=== PATIENT | female | born 1935 | race Caucasian/White ===

== ENCOUNTER 2017-08-26 18:06 | Emergency (ER) | payer MEDICARE, BC ==
[2017-08-26] MEDS ORDERED: cloNIDine 0.1 MG Tab ONE (18:12)
--- NOTE | 2017-08-26 18:54 | EDM.PDOC ---
ED HPI GENERAL MEDICAL PROBLEM - General Chief Complaint: General Stated Complaint: High BP reading at home Time Seen by Provider: 08/26/17 18:28 Source of Information: Reports: Patient History Limitations: Reports: No Limitations - History of Present Illness INITIAL COMMENTS - FREE TEXT/NARRATIVE: Patient presents to the ER with concerns of high blood pressure related to recent prednisone use. She states she was put on this for left ankle pain last Sunday from the parts casting machine operator due to significant swelling. She wasn't really experiencing any pain. She started to note that her blood pressure was creeping up on sunday. She contacted parts casting machine operator and was told to stop the prednisone. That day she was noting a rapid heart rate and felt somewhat short of breath. Since then, the blood pressure gets higher and higher every day. Today she has taken an additional 15 mg of her Lisinopril due to this. She has felt flushed today but denies any other symptoms. 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 - Related Data Allergies Allergy/AdvReac Type Severity Reaction Status Date / Time acetaminophen [From Percocet] Allergy Dizziness Verified 08/26/17 18:39 arformoterol [From Brovana] Allergy Rash Verified 08/26/17 18:39 budesonide [From Symbicort] Allergy Swelling Verified 08/26/17 18:39 fluticasone Allergy Cannot Verified 08/26/17 18:39 [From Advair Diskus] Remember formoterol fumarate Allergy Swelling Verified 08/26/17 18:39 [From Symbicort] oxycodone [From Percocet] Allergy Dizziness Verified 08/26/17 18:39 salmeterol Allergy Cannot Verified 08/26/17 18:39 [From Advair Diskus] Remember sulfamethoxazole Allergy Rash Verified 08/26/17 18:39 [From Bactrim] trimethoprim [From Bactrim] Allergy Rash Verified 08/26/17 18:39 urofollitropin Allergy Swelling Verified 08/26/17 18:39 [From Bravelle] Home Meds: Home Meds Antiox #11/OM3/DHA/EPA/Lut/Jose [50+ Adult Eye Health Softgel] 1 cap PO BEDTIME 09/24/15 [History] Calcium Carbonate [Calcium] 600 mg PO DAILY 09/24/15 [History] Levothyroxine 112 mcg PO BEDTIME 09/24/15 [History] Lisinopril [Prinivil] 5 mg PO DAILY 09/24/15 [History] Meloxicam 0.5 tab PO DAILY 09/24/15 [History] Mometasone Furoate [Asmanex 220 MCG] 2 puff INH DAILY 09/24/15 [History] Ubidecarenone/[place]-3/Vit E [Co Q-10-Vit E-Fish Oil Sfgl] 2 tab PO DAILY [History] Past Medical History HEENT History: Reports: Impaired Vision Cardiovascular History: Reports: Hypertension Respiratory History: Reports: Asthma Other Respiratory History: Uses C-Pap for sleep apnea Gastrointestinal History: Reports: GERD Genitourinary History: Reports: UTI, Recurrent 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: Musculoskeletal History: Reports: Arthritis Other Musculoskeletal History: L rotator cuff torn, "broke cap on top of humerus on R side" Endocrine/Metabolic History: Reports: Hypothyroidism Oncologic (Cancer) History: Reports: Squamous Cell Carcinoma Dermatologic History: Reports: Other (See Below) 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 Denies: Fever, Chills, Malaise, Weakness, Decreased Appetite HEENT: Denies: Ear Pain, Eye Pain, Sinus Problem, Throat Pain, Vertigo, Vision Change Respiratory: Denies: Shortness of Breath, Wheezing, Cough Cardiovascular: Denies: Chest Pain, Lightheadedness Endocrine: Denies: Fatigue GI/Abdominal: Reports: No Symptoms Musculoskeletal: Reports: Joint Pain ED EXAM, GENERAL - Physical Exam Exam: See Below Exam Limited By: No Limitations General Appearance: Alert, WD/WN, No Apparent Distress Eye Exam: Bilateral Eye: EOMI, PERRL Ears: Normal External Exam, Normal TMs Nose: Normal Inspection, Normal Mucosa, No Blood Throat/Mouth: Normal Inspection, Normal Oropharynx Head: Normocephalic Neck: Normal Inspection, Supple, Non-Tender Respiratory/Chest: No Respiratory Distress, Lungs Clear, Normal Breath Sounds Cardiovascular: Regular Rate, Rhythm Course - Vital Signs Last Recorded V/S: Last Vital Signs Temp 97.7 F 08/26/17 18:07 Pulse 79 08/26/17 18:07 Resp 18 08/26/17 18:07 BP 220/118 H 08/26/17 18:20 Pulse Ox 97 08/26/17 18:07 - Orders/Labs/Meds Orders: Active Orders 24 hr Category Date Time Status cloNIDine [Catapres] Med 08/27/17 18:16 Once 0.1 mg PO ONETIME ONE Medication Orders Clonidine HCl (Catapres) 0.1 mg PO ONETIME ONE Stop: 08/27/17 18:17 Last Admin: 08/26/17 18:20 Dose: 0.1 mg Meds: Medications Generic Name Dose Route Start Last Admin Trade Name Freq PRN Reason Stop Dose Admin Clonidine HCl 0.1 mg 08/27/17 18:16 08/26/17 18:20 Catapres PO 08/27/17 18:17 0.1 mg ONETIME ONE Administration Discontinued Medications Generic Name Dose Route Start Last Admin Trade Name Freq PRN Reason Stop Dose Admin Clonidine HCl Confirm 08/26/17 18:12 08/26/17 18:20 Catapres Administered 08/26/17 18:13 Not Given Dose 0.1 mg .ROUTE .STK-MED ONE - Re-Assessments/Exams Free Text/Narrative Re-Assessment/Exam: 08/26/17 19:19 Was given clonidine approximately an hour ago. Blood pressure is coming down nicely. Departure - Departure Time of Disposition: 19:19 Disposition: Home, Self-Care 01 Condition: Fair Clinical Impression: Hypertensive urgency - Discharge Information Additional Instructions: 1. Rest 2. Push fluids 3. Take your usual Lisinopril dose daily 4. Clonidine 0.1 mg up to 3x per day if blood pressure greater than 160/100. 5. Contact your primary care provider for any concerns. - My Orders Last 24 Hours: My Active Orders 08/27/17 18:16 cloNIDine [Catapres] 0.1 mg PO ONETIME ONE - Assessment/Plan Last 24 Hours: My Active Orders 08/27/17 18:16 cloNIDine [Catapres] 0.1 mg PO ONETIME ONE
[2017-08-26 19:15] VITALS: BP 158/77
[2017-08-26] MEDS ORDERED: cloNIDine 0.1 MG Tab PO PRN (19:20)
[2017-08-27] MEDS ORDERED: cloNIDine 0.1 MG Tab PO ONE (18:16)
== END 2017-08-26 19:25 | disposition home or self-care (01) ==
LOC: CC.ED 18:06
DX: I16.0 Hypertensive urgency (principal); J45.909 Unspecified asthma, uncomplicated; Z79.899 Other long term (current) drug therapy; I10 Essential (primary) hypertension; Z88.8 Allergy status to other drugs, medicaments and biological substances; Z88.6 Allergy status to analgesic agent; Z88.2 Allergy status to sulfonamides; Z88.1 Allergy status to other antibiotic agents
CPT/HCPCS: 99283; A9270

== ENCOUNTER 2018-10-06 00:50 | Emergency (ER) | payer MEDICARE, BC ==
--- NOTE | 2018-10-06 01:40 | EDM.PDOC ---
ED HPI GENERAL MEDICAL PROBLEM - General Chief Complaint: Cardiovascular Problem Stated Complaint: high blood pressure Time Seen by Provider: 10/06/18 01:00 Source of Information: Reports: Patient History Limitations: Reports: No Limitations - History of Present Illness INITIAL COMMENTS - FREE TEXT/NARRATIVE: This patient is an 83 year old female that presents to the ER. Patient arrives via EMS. Patient reports that she has been having blood pressure issues with managing her BP for the last 1 month. patient reports that she saw her food science professor on . She reports her food science professor made some medication changes to her BP meds. She reports starting her on Amlodipine and asking her to stop taking clonidine. She reports that this morning she took her BP at home. She reports it was elevated 200s over 100. She reports that she called her food science professor. He told her to double up on the amlodipine. She reports that it brought it down some, but was still high in the afternoon, so she called him again. He told her than to take a clonidine. She took it, it came down some, but was still elevated she reports. She reports so she called him again this evening, instructed her to take another clonidine. She reports that if her BP still remains very high to go to the ER. The patient reports that after she took her second clonidine, she was sitting in her chair and it felt like the inside of her head was moving, but she was not physically moving herself. The patient denies peña, n, v, d, f, neck pain, neck stiffness, chest pain, abd pain, back pain, urinary/bowel changes, edema, unilateral weaknesses, generalized weakness. She reports she has been short of breath for a month, unchanged. She reports her PCP ordered an echocardiogram that she had done and than saw the food science professor. Patient is alert and oriented. Onset Date: 10/03/18 Location: Reports: Head Severity: Mild Improves with: Reports: None Worsens with: Reports: None Associated Symptoms: Reports: Shortness of Breath. Denies: Confusion, Chest Pain, Cough, cough w sputum, Diaphoresis, Fever/Chills, Headaches, Loss of Appetite, Malaise, Nausea/Vomiting, Rash, Seizure, Syncope, Weakness - Related Data Allergies Allergy/AdvReac Type Severity Reaction Status Date / Time acetaminophen [From Percocet] Allergy Dizziness Verified 10/06/18 01:52 arformoterol [From Brovana] Allergy Rash Verified 10/06/18 01:52 budesonide [From Symbicort] Allergy Swelling Verified 10/06/18 01:52 fluticasone Allergy Cannot Verified 10/06/18 01:52 [From Advair Diskus] Remember formoterol fumarate Allergy Swelling Verified 10/06/18 01:52 [From Symbicort] oxycodone [From Percocet] Allergy Dizziness Verified 10/06/18 01:52 salmeterol Allergy Cannot Verified 10/06/18 01:52 [From Advair Diskus] Remember sulfamethoxazole Allergy Rash Verified 10/06/18 01:52 [From Bactrim] trimethoprim [From Bactrim] Allergy Rash Verified 10/06/18 01:52 urofollitropin Allergy Swelling Verified 10/06/18 01:52 [From Bravelle] Home Meds: Home Meds Calcium Carbonate [Calcium] 250 mg PO DAILY 09/24/15 [History] Levothyroxine 112 mcg PO BEDTIME 09/24/15 [History] Lisinopril [Prinivil] 40 mg PO DAILY 09/24/15 [History] Mometasone Furoate [Asmanex 220 MCG] 1 puff INH BID 09/24/15 [History] Albuterol Sulfate [Proair Hfa] 1 puff INH DAILY PRN 10/06/18 [History] Fish Oil/[place]-3 Fatty Acids [Fish Oil 1,000 MG] 2,000 mg PO DAILY 10/06/18 [ History] Lutein 10 mg PO DAILY 10/06/18 [History] Vitamin B Complex 2 cap PO DAILY 10/06/18 [History] amLODIPine [Norvasc] 10 mg PO DAILY 10/06/18 [History] cloNIDine [Catapres] 0.1 mg PO DAILY PRN 10/06/18 [History] Past Medical History HEENT History: Reports: Impaired Vision Cardiovascular History: Reports: Hypertension Respiratory History: Reports: Asthma Other Respiratory History: Uses C-Pap for sleep apnea Gastrointestinal History: Reports: GERD Genitourinary History: Reports: UTI, Recurrent 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: Musculoskeletal History: Reports: Arthritis Other Musculoskeletal History: L rotator cuff torn, "broke cap on top of humerus on R side" Endocrine/Metabolic History: Reports: Hypothyroidism Oncologic (Cancer) History: Reports: Squamous Cell Carcinoma Dermatologic History: Reports: Other (See Below) 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 Denies: Chest Pain, Dyspnea on Exertion, Edema, Palpitations, Syncope Endocrine: Reports: No Symptoms GI/Abdominal: Reports: No Symptoms : Reports: No Symptoms Musculoskeletal: Reports: No Symptoms Skin: Reports: No Symptoms Neurological: Reports: No Symptoms. Denies: Confusion, Headache, Numbness, Tingling, Tremors, Trouble Speaking, Difficulty Walking, Weakness, Change in Speech, Gait Disturbance Psychiatric: Reports: No Symptoms Hematologic/Lymphatic: Reports: No Symptoms Immunologic: Reports: No Symptoms ED EXAM, GENERAL - Physical Exam Exam: See Below Exam Limited By: No Limitations General Appearance: Alert, WD/WN, No Apparent Distress Eye Exam: Bilateral Eye: Normal Inspection, PERRL Ears: Normal External Exam, Normal Canal, Hearing Grossly Normal, Normal TMs Ear Exam: Bilateral Ear: Auricle Normal, Canal Normal, TM normal Nose: Normal Inspection, Normal Mucosa, No Blood Throat/Mouth: Normal Inspection, Normal Lips, Normal Teeth, Normal Gums, Normal Oropharynx, Normal Voice, No Airway Compromise Head: Atraumatic, Normocephalic Neck: Normal Inspection, Supple, Non-Tender, Full Range of Motion Respiratory/Chest: No Respiratory Distress, Lungs Clear, Normal Breath Sounds, No Accessory Muscle Use, Chest Non-Tender Cardiovascular: Normal Peripheral Pulses, Regular Rate, Rhythm, No Edema, No Gallop, No JVD, No Murmur, No Rub Peripheral Pulses: 2+: Radial (L), Radial (R), Posterior Tibial (L), Posterior Tibial (R) GI/Abdominal: Normal Bowel Sounds, Soft, Non-Tender, No Organomegaly, No Distention, No Abnormal Bruit, No Mass, Pelvis Stable (Female) Exam: Deferred Rectal (Female) Exam: Deferred Back Exam: Normal Inspection, Full Range of Motion. No: CVA Tenderness (L), CVA Tenderness (R) Extremities: Normal Inspection, Normal Range of Motion, Non-Tender, No Pedal Edema, Normal Capillary Refill Neurological: Alert, Oriented, CN II-XII Intact, Normal Cognition, Normal Gait, No Motor/Sensory Deficits Psychiatric: Normal Affect, Normal Mood Skin Exam: Warm, Dry, Intact, Normal Color, No Rash Lymphatic: No Adenopathy Course - Vital Signs Last Recorded V/S: Last Vital Signs Temp 98 F 10/06/18 00:51 Pulse 79 10/06/18 00:51 Resp 18 10/06/18 00:51 BP 154/69 H 10/06/18 02:05 Pulse Ox 99 10/06/18 00:51 - Orders/Labs/Meds Orders: Active Orders 24 hr Category Date Time Status Chest 2V [CR] Stat Exams 10/06/18 00:58 Taken Head wo Cont [CT] Stat Exams 10/06/18 01:23 Taken Blood Pressure [OM.PC] Stat Oth 10/06/18 02:01 Ordered Labs: Laboratory Tests 10/06/18 10/06/18 10/06/18 Range/Units 01:20 01:20 01:20 WBC 7.2 (5.0-10.0) 10^3/uL RBC 4.56 (4.00-5.50) 10^6/uL Hgb 14.2 (12.0-16.0) g/dL Hct 43.4 (37.0-47.0) % MCV 95.2 H (82.0-94.0) fL MCH 31.1 (27.0-32.0) pg MCHC 32.7 L (33.0-38.0) g/dL RDW Coeff of Tobin 13.2 (11.0-15.0) % Plt Count 233 (150-400) 10^3/uL Neut % (Auto) 62.2 (35-85) % Lymph % (Auto) 21.0 (10-55) % Terry % (Auto) 14.1 (0-16) % Eos % (Auto) 1.9 (0-5) % Baso % (Auto) 0.8 (0-3) % Neut # (Auto) 4.46 (1.80-7.00) 10^3/uL Lymph # (Auto) 1.51 (1.00-4.80) 10^3/uL Terry # (Auto) 1.01 H (0.00-0.80) 10^3/uL Eos # (Auto) 0.14 (0.00-0.45) 10^3/uL Baso # (Auto) 0.06 10^3/uL Sodium 141 (136-145) mEq/L Potassium 3.8 (3.5-5.0) mEq/L Chloride 102 (98-106) mEq/L Carbon Dioxide 31 (21-32) mmol/L BUN 15 (7-18) mg/dL Creatinine 0.9 (0.6-1.0) mg/dL Est Cr Clr Drug Dosing 39.18 mL/min Estimated GFR (MDRD) 60 (>=60) mL/min Glucose 120 H D (75-99) mg/dL Calcium 9.2 (8.4-10.1) mg/dL Total Bilirubin 0.3 (0.0-1.0) mg/dL AST 21 (15-37) U/L ALT 25 (12-78) U/L Alkaline Phosphatase 73 (46-116) U/L Creatine Kinase 116 (21-215) U/L Troponin I < 0.017 (0.00-0.06) ng/mL NT-Pro-B Natriuret Pep 57 (0-1000) pg/mL Total Protein 8.4 H (6.4-8.2) g/dL Albumin 3.8 (3.4-5.0) g/dL TSH, Ultra Sensitive 1.72 (0.36-5.60) uIU/mL - Radiology Interpretation Free Text/Narrative:: Head CT: No bleed, no infarct, no shift. CXR: no infiltrate, no edema, no pneumothorax. CT Results Date: 10/06/18 - Re-Assessments/Exams Free Text/Narrative Re-Assessment/Exam: 10/06/18 02:33 Patient blood pressure is 154/69. She has no headache, dizziness, n, vomiting, or any other symptoms. Workup unremarkable. Will discharge home. She is alert and oriented. Her food science professor stopped arthritis medication. Departure - Departure Time of Disposition: 02:36 Disposition: Home, Self-Care 01 Condition: Good Clinical Impression: Hypertension Qualifiers: Hypertension type: essential hypertension Qualified Code(s): I10 - Essential ( primary) hypertension Instructions: Managing Your Hypertension Forms: ED Department Discharge Additional Instructions: Followup with your food science professor Do Not take your blood pressure as often as 2 hours Return to the ER for emergencies or other concerns - My Orders Last 24 Hours: My Active Orders 10/06/18 00:58 Chest 2V [CR] Stat 10/06/18 01:23 Head wo Cont [CT] Stat 10/06/18 02:01 Blood Pressure [OM.PC] Stat - Assessment/Plan Last 24 Hours: My Active Orders 10/06/18 00:58 Chest 2V [CR] Stat 10/06/18 01:23 Head wo Cont [CT] Stat 10/06/18 02:01 Blood Pressure [OM.PC] Stat Plan: PLEASE SEE RN NOTE FOR PFSH.
[2018-10-06 01:48] LABS: CHLORIDE,CL 102 mEq/L (98-106); SODIUM,NA 141 mEq/L (136-145)
[2018-10-06 02:06] VITALS: BP 154/69
== END 2018-10-06 02:45 | disposition home or self-care (01) ==
LOC: CC.ED 00:50
DX: I10 Essential (primary) hypertension (principal); K21.9 Gastro-esophageal reflux disease without esophagitis; J45.909 Unspecified asthma, uncomplicated; Z79.899 Other long term (current) drug therapy; Z79.82 Long term (current) use of aspirin; Z88.8 Allergy status to other drugs, medicaments and biological substances
CPT/HCPCS: 36415; 70450; 71046; 80053; 82550; 83880; 84443; 84484; 85025; 93005; 99284

== ENCOUNTER 2018-10-15 09:21 | Emergency (ER) | payer MEDICARE, BC ==
[2018-10-15 10:26] VITALS: BP 147/90
[2018-10-15 10:32] LABS: CHLORIDE,CL 103 mEq/L (98-106); SODIUM,NA 141 mEq/L (136-145)
--- NOTE | 2018-10-15 10:32 | EDM.PDOC ---
ED HPI GENERAL MEDICAL PROBLEM - General Chief Complaint: Respiratory Problem Stated Complaint: SOB Time Seen by Provider: 10/15/18 10:15 - History of Present Illness INITIAL COMMENTS - FREE TEXT/NARRATIVE: Anna is an 83 year old female who presents to the ED with c/o shortness of breath on exertion. She reports around 0730 this morning, after she got out of the shower, she was very winded when trying to walk to her bedroom. She reports some mild dizziness for a short time. She reports her heart was "pounding real hard." No significant palpitations. Denies any chest pain, arm pain, N/V/D, urinary symptoms, cough, URI symptoms. She does report a history of asthma and "restricted lung." She reports she does have a heart murmur. Recently began seeing fish housekeeper in [place] for worsening hypertension and increasing systolic murmur. Reports recent echo and was told it was normal. EF of 65% per her report. She reports cardiology increased her lisinopril to 40 mg daily and advised her only to take clonidine if BP > 160 systolic. Does report she has Proair inhaler, however did not use this prior to calling EMS. At time of presentation, she reports no shortness of breath at rest. Does not appear in acute distress. Is talking in full complete sentences. Onset: Today, Sudden Onset Date: 10/15/18 Onset Time: 07:30 Duration: Resolved Prior to Arrival Associated Symptoms: Reports: Shortness of Breath. Denies: Confusion, Chest Pain, Cough, cough w sputum, Diaphoresis, Fever/Chills, Headaches, Loss of Appetite, Malaise, Nausea/Vomiting, Rash, Seizure, Syncope, Weakness - Related Data Allergies Allergy/AdvReac Type Severity Reaction Status Date / Time acetaminophen [From Percocet] Allergy Dizziness Verified 10/15/18 09:39 arformoterol [From Brovana] Allergy Rash Verified 10/15/18 09:39 budesonide [From Symbicort] Allergy Swelling Verified 10/15/18 09:39 fluticasone Allergy Cannot Verified 10/15/18 09:39 [From Advair Diskus] Remember formoterol fumarate Allergy Swelling Verified 10/15/18 09:39 [From Symbicort] oxycodone [From Percocet] Allergy Dizziness Verified 10/15/18 09:39 salmeterol Allergy Cannot Verified 10/15/18 09:39 [From Advair Diskus] Remember sulfamethoxazole Allergy Rash Verified 10/15/18 09:39 [From Bactrim] trimethoprim [From Bactrim] Allergy Rash Verified 10/15/18 09:39 urofollitropin Allergy Swelling Verified 10/15/18 09:39 [From Bravelle] Home Meds: Home Meds Calcium Carbonate [Calcium] 250 mg PO DAILY 09/24/15 [History] Levothyroxine 112 mcg PO BEDTIME 09/24/15 [History] Lisinopril [Prinivil] 40 mg PO DAILY 09/24/15 [History] Mometasone Furoate [Asmanex 220 MCG] 1 puff INH BID 09/24/15 [History] Albuterol Sulfate [Proair Hfa] 1 puff INH DAILY PRN 10/06/18 [History] Fish Oil/[place]-3 Fatty Acids [Fish Oil 1,000 MG] 2,000 mg PO DAILY 10/06/18 [ History] Lutein 1 tab PO DAILY 10/06/18 [History] Vitamin B Complex 2 cap PO DAILY 10/06/18 [History] amLODIPine [Norvasc] 5 mg PO DAILY 10/06/18 [History] cloNIDine [Catapres] 0.1 mg PO DAILY PRN 10/06/18 [History] Rosuvastatin [Crestor] 20 mg PO DAILY 10/15/18 [History] hydrALAZINE [Apresoline] 25 mg PO TID 10/15/18 [History] Past Medical History HEENT History: Reports: Impaired Vision Cardiovascular History: Reports: High Cholesterol, Hypertension Respiratory History: Reports: Asthma, Sleep Apnea Other Respiratory History: Uses C-Pap for sleep apnea Gastrointestinal History: Reports: GERD Genitourinary History: Reports: UTI, Recurrent 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: Musculoskeletal History: Reports: Arthritis Other Musculoskeletal History: L rotator cuff torn, "broke cap on top of humerus on R side" Endocrine/Metabolic History: Reports: Hypothyroidism Oncologic (Cancer) History: Reports: Squamous Cell Carcinoma Dermatologic History: Reports: Other (See Below) 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 Denies: Rhinitis, Sinus Problem, Throat Swelling, Vision Change Respiratory: Reports: Shortness of Breath. Denies: Wheezing, Pleuritic Chest Pain, Cough, Sputum, Hemoptysis Cardiovascular: Reports: Blood Pressure Problem, Dyspnea on Exertion, Lightheadedness. Denies: Chest Pain, Edema, Orthopnea, Palpitations, Syncope Endocrine: Denies: Fatigue GI/Abdominal: Denies: Abdominal Pain, Constipation, Diarrhea, Decreased Appetite , Nausea, Vomiting : Reports: No Symptoms. Denies: Dysuria, Frequency, Urgency Musculoskeletal: Reports: No Symptoms Skin: Reports: No Symptoms Neurological: Reports: Dizziness. Denies: Confusion, Numbness, Syncope, Tingling, Difficulty Walking, Weakness Psychiatric: Reports: Anxiety (regarding BP) Hematologic/Lymphatic: Reports: Easy Bruising Immunologic: Reports: No Symptoms ED EXAM, GENERAL - Physical Exam Exam: See Below Exam Limited By: No Limitations General Appearance: Alert, WD/WN, No Apparent Distress Eye Exam: Bilateral Eye: EOMI, PERRL Ears: Normal External Exam, Normal Canal, Hearing Grossly Normal, Normal TMs Nose: Normal Inspection, Normal Mucosa, No Blood Throat/Mouth: Normal Inspection, Normal Lips, Normal Teeth, Normal Gums, Normal Oropharynx, Normal Voice, No Airway Compromise Head: Atraumatic, Normocephalic Neck: Normal Inspection, Supple, Non-Tender, Full Range of Motion Respiratory/Chest: No Respiratory Distress, Lungs Clear, Normal Breath Sounds, No Accessory Muscle Use, Chest Non-Tender Cardiovascular: Normal Peripheral Pulses, Regular Rate, Rhythm, No Edema, No Gallop, No JVD, No Rub, Systolic Murmur Peripheral Pulses: 2+: Dorsalis Pedis (L), Dorsalis Pedis (R) GI/Abdominal: Normal Bowel Sounds, Soft, Non-Tender, No Organomegaly, No Distention, No Abnormal Bruit, No Mass Back Exam: Normal Inspection, Full Range of Motion, NT Extremities: Normal Inspection, Normal Range of Motion, Non-Tender, Normal Capillary Refill, No Pedal Edema Neurological: Alert, Oriented, CN II-XII Intact, Normal Cognition, Normal Gait, Normal Reflexes, No Motor/Sensory Deficits Psychiatric: Anxious Skin Exam: Warm, Dry, Intact, Normal Color, No Rash Lymphatic: No Adenopathy Course - Vital Signs Last Recorded V/S: Last Vital Signs Temp 97.4 F 10/15/18 10:25 Pulse 85 10/15/18 10:25 Resp 16 10/15/18 10:25 BP 147/90 H 10/15/18 10:25 Pulse Ox 98 10/15/18 10:25 - Orders/Labs/Meds Orders: Active Orders 24 hr Category Date Time Status Chest 2V [CR] Routine Exams 10/15/18 Taken Labs: Laboratory Tests 10/15/18 10/15/18 10/15/18 Range/Units 10:11 10:11 10:11 WBC 8.9 (5.0-10.0) 10^3/uL RBC 4.61 (4.00-5.50) 10^6/uL Hgb 14.4 (12.0-16.0) g/dL Hct 44.5 (37.0-47.0) % MCV 96.5 H (82.0-94.0) fL MCH 31.2 (27.0-32.0) pg MCHC 32.4 L (33.0-38.0) g/dL RDW Coeff of Tobin 12.9 (11.0-15.0) % Plt Count 257 (150-400) 10^3/uL Neut % (Auto) 69.9 (35-85) % Lymph % (Auto) 13.4 (10-55) % Eddy % (Auto) 15.5 (0-16) % Eos % (Auto) 0.9 (0-5) % Baso % (Auto) 0.3 (0-3) % Neut # (Auto) 6.22 (1.80-7.00) 10^3/uL Lymph # (Auto) 1.19 (1.00-4.80) 10^3/uL Eddy # (Auto) 1.38 H (0.00-0.80) 10^3/uL Eos # (Auto) 0.08 (0.00-0.45) 10^3/uL Baso # (Auto) 0.03 10^3/uL D-Dimer, Quantitative 0.73 H (0.00-0.50) Sodium 141 (136-145) mEq/L Potassium 4.3 (3.5-5.0) mEq/L Chloride 103 (98-106) mEq/L Carbon Dioxide 31 (21-32) mmol/L BUN 21 H (7-18) mg/dL Creatinine 1.0 (0.6-1.0) mg/dL Est Cr Clr Drug Dosing 36.03 mL/min Estimated GFR (MDRD) 53 L (>=60) mL/min Glucose 98 (75-99) mg/dL Calcium 9.6 (8.4-10.1) mg/dL Troponin I < 0.017 (0.00-0.06) ng/mL C-Reactive Protein 0.4 (0.2-0.8) mg/dL NT-Pro-B Natriuret Pep 18 (0-1000) pg/mL - Re-Assessments/Exams Free Text/Narrative Re-Assessment/Exam: Discussed normal lab and xray results with patient and daughter. Discussed that there is no emergent issue currently and would recommend follow up with PCP or fish housekeeper for ongoing exertional dyspnea. Patient and daughter verbalized understanding and had no additional questions. Departure - Departure Time of Disposition: 10:48 Disposition: Home, Self-Care 01 Condition: Good Clinical Impression: Dyspnea on exertion Hypertension Qualifiers: Hypertension type: essential hypertension Qualified Code(s): I10 - Essential ( primary) hypertension Asthma Qualifiers: Asthma severity: mild Asthma persistence: intermittent Asthma complication type : uncomplicated Qualified Code(s): J45.20 - Mild intermittent asthma, uncomplicated - Discharge Information *PRESCRIPTION DRUG MONITORING PROGRAM REVIEWED*: Not Applicable *COPY OF PRESCRIPTION DRUG MONITORING REPORT IN PATIENT BRIA: Not Applicable Instructions: Shortness of Breath, Adult, [id number] Referrals: Venecia Acosta NP [Primary Care Provider] - Forms: ED Department Discharge Additional Instructions: 1) Proair inhaler as needed for shortness of breath 2) BP meds as directed by PCP and fish housekeeper 3) Follow up with fish housekeeper as scheduled October 28, 2018. Discuss symptoms with fish housekeeper. 4) Follow up with PCP for recheck if symptoms worsen or persist. - My Orders Last 24 Hours: My Active Orders 10/15/18 Chest 2V [CR] Routine - Assessment/Plan Last 24 Hours: My Active Orders 10/15/18 Chest 2V [CR] Routine
== END 2018-10-15 11:20 | disposition home or self-care (01) ==
LOC: CC.ED 09:21
DX: J45.20 Mild intermittent asthma, uncomplicated (principal); E78.00 Pure hypercholesterolemia, unspecified; I10 Essential (primary) hypertension; J45.909 Unspecified asthma, uncomplicated; K21.9 Gastro-esophageal reflux disease without esophagitis; E03.9 Hypothyroidism, unspecified; Z88.8 Allergy status to other drugs, medicaments and biological substances; Z88.2 Allergy status to sulfonamides; Z79.899 Other long term (current) drug therapy
CPT/HCPCS: 36415; 71046; 80048; 83880; 84484; 85025; 85379; 86140; 93005; 99285

== ENCOUNTER 2020-10-06 19:04 | Inpatient (IN) | payer MEDICARE, BC ==
--- NOTE | 2020-10-06 20:13 | EDM.PDOC ---
ED HPI GENERAL MEDICAL PROBLEM - General Chief Complaint: Back Pain or Injury Stated Complaint: L)lower back pain Time Seen by Provider: 10/06/20 19:34 Source of Information: Reports: Patient, EMS History Limitations: Reports: No Limitations - History of Present Illness INITIAL COMMENTS - FREE TEXT/NARRATIVE: Anna is a 85 year old female who presents to ER per EMS with complaints of low back pain. Fell this afternoon when getting groceries and landed on her left hip. Was able to get up unassisted and returned home, initially worried about her hip but that is much improved now. Took tylenol and laid down. When awoke, was unable to get up easily from the bed and noted increased pain with taking a deep breath. Now noting the pain is more mid back area as well. Rates the pain at an 8/10 with rest but increases to 10 with movement. No shortness of breath. Denies nausea or vomiting. Onset: Today, Sudden Duration: Hour(s):, Getting Worse Location: Reports: Back Severity: Severe Improves with: Reports: Rest Worsens with: Reports: Movement Associated Symptoms: Denies: Confusion, Chest Pain, Cough, Fever/Chills, Loss of Appetite, Nausea/Vomiting, Shortness of Breath Treatments MILL HAND: Reports: Acetaminophen Left Lower Back Pain Score (Numeric/FACES): 7 - Related Data Allergies Allergy/AdvReac Type Severity Reaction Status Date / Time acetaminophen [From Percocet] Allergy Dizziness Verified 10/06/20 19:34 arformoterol [From Brovana] Allergy Rash Verified 10/06/20 19:34 budesonide [From Symbicort] Allergy Swelling Verified 10/06/20 19:34 fluticasone Allergy Cannot Verified 10/06/20 19:34 [From Advair Diskus] Remember formoterol fumarate Allergy Swelling Verified 10/06/20 19:34 [From Symbicort] oxycodone [From Percocet] Allergy Dizziness Verified 10/06/20 19:34 salmeterol Allergy Cannot Verified 10/06/20 19:34 [From Advair Diskus] Remember sulfamethoxazole Allergy Rash Verified 10/06/20 19:34 [From Bactrim] trimethoprim [From Bactrim] Allergy Rash Verified 10/06/20 19:34 urofollitropin Allergy Swelling Verified 10/06/20 19:34 [From Bravelle] Home Meds: Home Meds Levothyroxine 112 mcg PO BEDTIME 09/24/15 [History] Fish Oil/[place]-3 Fatty Acids [Fish Oil 1,000 MG] 2,000 mg PO DAILY 10/06/18 [History] cloNIDine [Catapres] 0.1 mg PO DAILY PRN 10/06/18 [History] hydrALAZINE [Apresoline] 25 mg PO TID PRN 10/15/18 [History] Albuterol [Proventil Neb Soln] 1 inhalation NEB TID 10/06/20 [History] Calcium Carb, Citrate/Vit D3 [Calcium + D3 ER Tablet] 800 mg PO DAILY 10/06/20 [History] Cholecalciferol (Vitamin D3) [Vitamin D3] 5,000 unit PO DAILY 10/06/20 [History] Gabapentin [Neurontin] 300 mg PO TID 10/06/20 [History] Mometasone Furoate 200mcg [Asmanex HFA 200mcg] 2 inh INH DAILY 10/06/20 [History] Omeprazole 20 mg PO DAILY PRN 10/06/20 [History] lisinopriL [Lisinopril] 5 mg PO DAILY 10/06/20 [History] Past Medical History HEENT History: Reports: Impaired Vision Cardiovascular History: Reports: High Cholesterol, Hypertension Respiratory History: Reports: Asthma, Sleep Apnea Other Respiratory History: Uses C-Pap for sleep apnea Gastrointestinal History: Reports: GERD Genitourinary History: Reports: UTI, Recurrent 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: Musculoskeletal History: Reports: Arthritis Other Musculoskeletal History: L rotator cuff torn, "broke cap on top of humerus on R side" Endocrine/Metabolic History: Reports: Hypothyroidism Oncologic (Cancer) History: Reports: Squamous Cell Carcinoma Dermatologic History: Reports: Other (See Below) 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 - Past Surgical History HEENT Surgical History: Reports: Cataract Surgery, Tonsillectomy GI Surgical History: Reports: Appendectomy, Cholecystectomy Female Surgical History: Reports: Hysterectomy Other Female Surgeries/Procedures: bladder surgery Social & Family History - Family History Family Medical History: No Pertinent Family History - Tobacco Use Tobacco Use Status *Q: Never Tobacco User - Caffeine Use Caffeine Use: Reports: None - Recreational Drug Use Recreational Drug Use: No ED ROS GENERAL - Review of Systems Review Of Systems: See Below Constitutional: Denies: Fever, Chills, Malaise, Weakness, Fatigue, Decreased Appetite HEENT: Reports: No Symptoms Respiratory: Denies: Shortness of Breath, Cough Cardiovascular: Denies: Chest Pain, Edema, Lightheadedness Endocrine: Denies: Fatigue GI/Abdominal: Denies: Abdominal Pain, Nausea, Vomiting : Denies: Incontinence Musculoskeletal: Reports: Back Pain Skin: Reports: No Symptoms Neurological: Reports: No Symptoms Psychiatric: Reports: No Symptoms ED EXAM,LOWER BACK PAIN/INJURY - Physical Exam Exam: See Below Exam Limited By: No Limitations General Appearance: Alert, WD/WN, No Apparent Distress Ears: Normal External Exam, Normal TMs Nose: Normal Inspection, Normal Mucosa, No Blood Throat/Mouth: Normal Inspection, Normal Oropharynx Head: Normocephalic Neck: Normal Inspection, Supple, Non-Tender Respiratory/Chest: No Respiratory Distress, Lungs Clear, Normal Breath Sounds Cardiovascular: Tachycardia GI/Abdominal: Normal Bowel Sounds, Soft, Non-Tender Back Exam: Decreased Range of Motion, Vertebral Tenderness Neurological: Alert, Normal Mood/Affect, Normal Dorsiflexion, Normal Plantar Flexion Skin Exam: Warm, Dry Course - Vital Signs Last Recorded V/S: Last Vital Signs Temp 97.1 F 10/06/20 19:10 Pulse 86 10/06/20 19:10 Resp 18 10/06/20 19:10 BP 200/76 H 10/06/20 19:48 Pulse Ox 95 10/06/20 19:10 - Orders/Labs/Meds Orders: Active Orders 24 hr Category Date Time Status Hip Min 2V or 3V w Pelvis Lt [CR] Stat Exams 10/06/20 19:19 Taken Lumbar Spine 2 or 3V [CR] Stat Exams 10/06/20 19:18 Taken - Re-Assessments/Exams Free Text/Narrative Re-Assessment/Exam: 10/06/201999 Discussed xrays with radiologist due to concern with thoracic compression frac ernestine. Does appear to be acute as no abnormal areas noted in thoracic spine when CT of chest was done 3 weeks. Advised to proceed with MRI of thoracic spine if pain correlates with the area. Is tender to mid back and complains of increased pain with deep inspiration. Admission discussed with patient. Will admit for pain control, MRI of back. Blood pressure is also high, will need to adjust medications and treat accordingly. Departure - Departure Time of Disposition: 20:23 Disposition: Admitted As Inpatient 66 Condition: Fair Clinical Impression: Hypertensive urgency - Discharge Information *PRESCRIPTION DRUG MONITORING PROGRAM REVIEWED*: No *COPY OF PRESCRIPTION DRUG MONITORING REPORT IN PATIENT BRIA: No Sepsis Event Note (ED) - Evaluation Sepsis Screening Result: No Definite Risk - Focused Exam Vital Signs: Vital Signs Temp Pulse Resp BP Pulse Ox 10/06/20 19:48 200/76 H 10/06/20 19:10 97.1 F 86 18 206/106 H 95 - Problem List & Annotations (1) Compression fracture of T8 vertebra SNOMED Code(s): 049165890 Code(s): S22.060A - WEDGE COMPRESSION FRACTURE OF T7-T8 VERTEBRA, INIT Status: Acute Priority: High Current Visit: Yes Qualifiers: Encounter type: initial encounter Qualified Code(s): S22.060A - Wedge compression fracture of T7-T8 vertebra, initial encounter for closed fracture (2) Hypertensive urgency SNOMED Code(s): 249728766 Code(s): I16.0 - HYPERTENSIVE URGENCY Status: Acute Priority: High Current Visit: Yes - Problem List Review Problem List Initiated/Reviewed/Updated: Yes - My Orders Last 24 Hours: My Active Orders 10/06/20 19:18 Lumbar Spine 2 or 3V [CR] Stat 10/06/20 19:19 Hip Min 2V or 3V w Pelvis Lt [CR] Stat - Assessment/Plan Admission H&P: Please use this note as an admission H&P Last 24 Hours: My Active Orders 10/06/20 19:18 Lumbar Spine 2 or 3V [CR] Stat 10/06/20 19:19 Hip Min 2V or 3V w Pelvis Lt [CR] Stat Assessment:: Compression fracture of T8 Hypertensive Urgency Plan: Admit to inpatient for pain control, PT and monitoring/treatment of blood pressure.
[2020-10-06] MEDS ORDERED: Pantoprazole 40 MG Tab.CR PO PRN (20:38)
[2020-10-06] MEDS ORDERED: hydrALAZINE 25 MG Tab PO PRN (20:38)
[2020-10-06] MEDS ORDERED: Ondansetron 4 MG Tab.DIS PO PRN (20:46)
[2020-10-06] MEDS ORDERED: Sodium Chloride 0.9% 10 ML Syringe FLUSH PRN (20:46)
[2020-10-06] MEDS ORDERED: Acetaminophen 325 MG Tab PO PRN (20:46)
[2020-10-06] MEDS ORDERED: Temazepam 15 MG Cap PO PRN (20:46)
[2020-10-06] MEDS ORDERED: fentaNYL 100 MCG/2 ML SDV IVPUSH SCH (21:00)
[2020-10-06] MEDS: amLODIPine 10 MG Tab PO SCH (21:14)
[2020-10-06] MEDS: Albuterol 0.042% 1.25 MG/3 ML Neb Soln NEB SCH (21:35)
[2020-10-06] MEDS: fentaNYL 100 MCG/2 ML SDV IVPUSH SCH (21:43)
[2020-10-06] MEDS: Enoxaparin 30 MG/0.3 ML Syringe SUBCUT SCH (21:50)
[2020-10-07] MEDS: Acetaminophen/HYDROcodone 325-5 MG Tab PO PRN ×4 (03:03→19:38)
[2020-10-07] MEDS ORDERED: MOMETASONE FUROATE 200 MCG INH SCH (08:00)
[2020-10-07] MEDS: Albuterol 0.042% 1.25 MG/3 ML Neb Soln NEB SCH ×3 (08:00→19:35)
[2020-10-07] MEDS ORDERED: Albuterol 0.042% 1.25 MG/3 ML Neb Soln NEB SCH (08:00)
[2020-10-07] MEDS: Lisinopril 5 MG Tab PO SCH (08:01)
[2020-10-07] MEDS: Gabapentin 100 MG Cap PO SCH ×3 (08:01→19:35)
[2020-10-07] MEDS: Cholecalciferol (Vitamin D3) 25 MCG Tab PO SCH (08:02)
[2020-10-07] MEDS: fentaNYL 100 MCG/2 ML SDV IVPUSH SCH ×2 (09:28→21:39)
[2020-10-07] MEDS: Cyclobenzaprine 10 MG Tab PO PRN ×2 (09:29→17:44)
[2020-10-07] MEDS: Calcium Carbonate/Vitamin D3 1250 MG-200 Unit Tab PO SCH ×2 (09:29→19:35)
[2020-10-07] MEDS: MOMETASONE FUROATE 200 MCG INH SCH ×2 (09:32→19:36)
[2020-10-07] MEDS: amLODIPine 10 MG Tab PO SCH (19:35)
[2020-10-07] MEDS: Enoxaparin 30 MG/0.3 ML Syringe SUBCUT SCH (19:35)
[2020-10-07] MEDS: Levothyroxine 112 MCG Tab PO SCH (19:35)
--- NOTE | 2020-10-07 22:21 | PCM.PN ---
- General Info Date of Service: 10/07/20 Admission Dx/Problem (Free Text): T8 Compression Fracture Subjective Update: Anna is a 85 year old female who was admitted from the ER (10/06/2019) with complaints of low back pain. Patient fell earlier that afternoon when getting groceries and landed on her left hip. Was able to get up unassisted and returned home, initially worried about her hip. She took Tylenol and laid down. When she awoke, she was unable to get up easily from the bed and noted increased pain with taking a deep breath. Now noting the pain is more mid back. States with movement pain would intensify. 10/07/2020 Patient states she continues to have midback pain. Denies any hip pain presently. Feels if she is getting muscle spasms when she tries to take in a deep breath or movement. Pain medication has helped. Has history of spinal stenosis and does see pain management in [place]. - Review of Systems General: Denies: Fever, Fatigue, Appetite HEENT: Reports: No Symptoms Pulmonary: Reports: Shortness of Breath (with deep breaths or movement) Cardiovascular: Reports: No Symptoms. Denies: Chest Pain Gastrointestinal: Reports: No Symptoms Genitourinary: Reports: No Symptoms Musculoskeletal: Reports: Back Pain Skin: Reports: No Symptoms Neurological: Reports: No Symptoms - Patient Data Vitals - Most Recent: Last Vital Signs Temp 97.9 F 10/07/20 19:34 Pulse 87 10/07/20 19:34 Resp 18 10/07/20 19:34 BP 142/64 H 10/07/20 19:35 Pulse Ox 94 L 10/07/20 19:34 Weight - Most Recent: 185 lb Med Orders - Current: Current Medications Acetaminophen (Tylenol) 650 mg PO Q4H PRN PRN Reason: Pain (Mild 1-3)/fever Last Admin: 10/07/20 16:11 Dose: 650 mg Documented by: Hydrocodone Bitart/Acetaminophen ([place] 325-5 Mg) 1 - 2 tab PO Q6H PRN PRN Reason: Pain (moderate 4-6) Last Admin: 10/07/20 19:38 Dose: 2 tab Documented by: Albuterol (Proventil Neb Soln) 1.25 mg NEB TIDRT GERMAN Last Admin: 10/07/20 19:35 Dose: 1.25 mg Documented by: Amlodipine Besylate (Norvasc) 5 mg PO BEDTIME [facility] Last Admin: 10/07/20 19:35 Dose: 5 mg Documented by: Calcium Carbonate (Calcium Carbonate/Vitamin D 1250 Mg-200 Unit) 1 tab PO BID [facility] Last Admin: 10/07/20 19:35 Dose: 1 tab Documented by: Cholecalciferol (Vitamin D3) 125 mcg PO DAILY [facility] Last Admin: 10/07/20 08:02 Dose: 125 mcg Documented by: Cyclobenzaprine HCl (Flexeril) 10 mg PO TID PRN PRN Reason: Spasms Last Admin: 10/07/20 17:44 Dose: 10 mg Documented by: Enoxaparin Sodium (Lovenox) 30 mg SUBCUT BEDTIME [facility] Last Admin: 10/07/20 19:35 Dose: 30 mg Documented by: Fentanyl (Sublimaze) 25 mcg IVPUSH Q12H [facility] Last Admin: 10/07/20 21:39 Dose: 25 mcg Documented by: Gabapentin (Neurontin) 200 mg PO TID [facility] Last Admin: 10/07/20 19:35 Dose: 200 mg Documented by: Hydralazine HCl (Apresoline) 25 mg PO TID PRN PRN Reason: Hypertension Levothyroxine Sodium (Levothyroxine) 112 mcg PO BEDTIME [facility] Last Admin: 10/07/20 19:35 Dose: 112 mcg Documented by: Lisinopril (Prinivil) 5 mg PO DAILY [facility] Last Admin: 10/07/20 08:01 Dose: 5 mg Documented by: Mometasone Furoate 200mcg [Asmanex Hfa 200mcg] 2 Inh Ptom 0 inh INH BID [facility] Last Admin: 10/07/20 19:36 Dose: 1 inh Documented by: Synbiotic 365 Ptom () 0 each PO DAILY [facility] Ondansetron HCl (Zofran Odt) 4 mg PO Q4H PRN PRN Reason: nausea, able to take PO Pantoprazole Sodium (Protonix) 40 mg PO DAILY PRN PRN Reason: Heartburn Senna/Docusate Sodium (Senna Plus) 1 tab PO BID PRN PRN Reason: Constipation Last Admin: 10/07/20 13:41 Dose: 1 tab Documented by: Sodium Chloride (Saline Flush) 10 ml FLUSH ASDIRECTED PRN PRN Reason: Keep Vein Open Temazepam (Restoril) 15 mg PO BEDTIME PRN PRN Reason: Sleep Discontinued Medications Albuterol (Proventil Neb Soln) 1.25 mg NEB TIDRT [facility]ERMAN Fentanyl (Sublimaze) 25 mcg IVPUSH Q4H [facility] Last Admin: 10/06/20 22:23 Dose: Not Given Documented by: Non-Formulary Medication (Mometasone Furoate 200mcg [Asmanex Hfa 200mcg]) 2 inh INH DAILY [facility] - Exam General: Alert, Oriented, Cooperative, No Acute Distress Lungs: Clear to Auscultation, Normal Respiratory Effort. No: Crackles, Rales, Rhonchi, Wheezing Cardiovascular: Regular Rate, Regular Rhythm GI/Abdominal Exam: Normal Bowel Sounds, Soft Back Exam: Decreased Range of Motion, Muscle Spasm, Vertebral Tenderness Peripheral Pulses: 2+: Dorsalis Pedis (L), Dorsalis Pedis (R) Skin: Warm, Dry, Intact Psy/Mental Status: Alert, Normal Affect, Normal Mood Sepsis Event Note - Evaluation Sepsis Screening Result: No Definite Risk - Focused Exam Vital Signs: Vital Signs Temp Pulse Resp BP BP BP Pulse Ox 10/07/20 19:35 142/64 H 10/07/20 19:34 97.9 F 87 18 142/64 H 94 L 10/07/20 16:00 97.7 F 60 20 132/52 L 91 L 10/07/20 12:00 98.3 F 64 18 150/64 H 92 L - Problem List & Annotations (1) Compression fracture of T8 vertebra SNOMED Code(s): 650619559 Code(s): S22.060A - WEDGE COMPRESSION FRACTURE OF T7-T8 VERTEBRA, INIT Status: Acute Priority: High Current Visit: Yes Qualifiers: Encounter type: initial encounter Qualified Code(s): S22.060A - Wedge compression fracture of T7-T8 vertebra, initial encounter for closed fracture - Problem List Review Problem List Initiated/Reviewed/Updated: Yes - My Orders Last 24 Hours: My Active Orders 10/07/20 08:23 Cyclobenzaprine [Flexeril] 10 mg PO TID PRN 10/07/20 11:06 Docusate Sodium/Sennosides [Senna Plus] 1 tab PO BID PRN 10/08/20 08:00 Non-Formulary Medication [NF Drug] 0 each PO DAILY - Plan Plan:: Patient will undergo MRI of the lumbar spine tomorrow. Plan for physical therapy to evaluate and treat. Will continue IV pain medication and wean as tolerated. Will start stool softener as well. Reevaluate tomorrow.
[2020-10-08] MEDS: Acetaminophen/HYDROcodone 325-5 MG Tab PO PRN ×3 (03:11→23:53)
[2020-10-08] MEDS: Lisinopril 5 MG Tab PO SCH (07:58)
[2020-10-08] MEDS: Gabapentin 100 MG Cap PO SCH ×3 (07:58→19:34)
[2020-10-08] MEDS: Calcium Carbonate/Vitamin D3 1250 MG-200 Unit Tab PO SCH ×2 (07:58→19:33)
[2020-10-08] MEDS: Cholecalciferol (Vitamin D3) 25 MCG Tab PO SCH (07:59)
[2020-10-08] MEDS: [UNRECOGNIZED DRUG - OTHER] PO SCH (08:00)
[2020-10-08] MEDS: MOMETASONE FUROATE 200 MCG INH SCH ×2 (08:01→19:35)
[2020-10-08] MEDS: Albuterol 0.042% 1.25 MG/3 ML Neb Soln NEB SCH ×3 (08:01→19:33)
[2020-10-08] MEDS: Lidocaine 5% 700 MG Patch TRDERM SCH (09:14)
[2020-10-08] MEDS: fentaNYL 100 MCG/2 ML SDV IVPUSH SCH ×2 (09:14→20:37)
--- NOTE | 2020-10-08 09:23 | PCM.PN ---
- General Info Date of Service: 10/08/20 Admission Dx/Problem (Free Text): T8 Compression Fracture Subjective Update: Anna is a 85 year old female who was admitted from the ER (10/06/2019) with complaints of low back pain. Patient fell earlier that afternoon when getting groceries and landed on her left hip. Was able to get up unassisted and returned home, initially worried about her hip. She took Tylenol and laid down. When she awoke, she was unable to get up easily from the bed and noted increased pain with taking a deep breath. Now noting the pain is more mid back. States with movement pain would intensify. 10/07/2020 Patient states she continues to have midback pain. Denies any hip pain presently. Feels if she is getting muscle spasms when she tries to take in a deep breath or movement. Pain medication has helped. Has history of spinal stenosis and does see pain management in [place]. 10/08/2020 Anna had just woken up upon my arrival this morning to be taken for MRI of the thoracic spine. She states she was able to ambulate with a walker yesterday afternoon out to the nurses station. She admits it did cause for her to have an increase in discomfort last night. Continues to have difficulty with taking deep breaths. Otherwise, denies any concerns today. She states the muscle relaxer has helped since starting. Functional Status: Reports: Tolerating Diet, Ambulating - Review of Systems General: Reports: Weakness. Denies: Fever HEENT: Reports: No Symptoms Pulmonary: Reports: Shortness of Breath Cardiovascular: Denies: Chest Pain, Palpitations, Lightheadedness Gastrointestinal: Reports: Constipation, Flatus. Denies: Diarrhea, Nausea, Vomiting Genitourinary: Reports: No Symptoms Musculoskeletal: Reports: Back Pain Skin: Reports: No Symptoms Neurological: Reports: No Symptoms - Patient Data Vitals - Most Recent: Last Vital Signs Temp 98.3 F 10/08/20 03:30 Pulse 67 10/08/20 03:30 Resp 18 10/08/20 03:30 BP 111/56 L 10/08/20 07:58 Pulse Ox 95 10/08/20 03:30 Weight - Most Recent: 185 lb Med Orders - Current: Current Medications Acetaminophen (Tylenol) 650 mg PO Q4H PRN PRN Reason: Pain (Mild 1-3)/fever Last Admin: 10/07/20 16:11 Dose: 650 mg Documented by: Hydrocodone Bitart/Acetaminophen ([place] 325-5 Mg) 1 - 2 tab PO Q6H PRN PRN Reason: Pain (moderate 4-6) Last Admin: 10/08/20 03:11 Dose: 2 tab Documented by: Albuterol (Proventil Neb Soln) 1.25 mg NEB TIDRT [facility] Last Admin: 10/08/20 08:01 Dose: 1.25 mg Documented by: Amlodipine Besylate (Norvasc) 5 mg PO BEDTIME [facility] Last Admin: 10/07/20 19:35 Dose: 5 mg Documented by: Calcium Carbonate (Calcium Carbonate/Vitamin D 1250 Mg-200 Unit) 1 tab PO BID [facility] Last Admin: 10/08/20 07:58 Dose: 1 tab Documented by: Cholecalciferol (Vitamin D3) 125 mcg PO DAILY [facility] Last Admin: 10/08/20 07:59 Dose: 125 mcg Documented by: Cyclobenzaprine HCl (Flexeril) 10 mg PO TID PRN PRN Reason: Spasms Last Admin: 10/07/20 17:44 Dose: 10 mg Documented by: Enoxaparin Sodium (Lovenox) 30 mg SUBCUT BEDTIME [facility] Last Admin: 10/07/20 19:35 Dose: 30 mg Documented by: Fentanyl (Sublimaze) 25 mcg IVPUSH Q12H [facility] Last Admin: 10/08/20 09:14 Dose: 25 mcg Documented by: Gabapentin (Neurontin) 200 mg PO TID [facility] Last Admin: 10/08/20 07:58 Dose: 200 mg Documented by: Hydralazine HCl (Apresoline) 25 mg PO TID PRN PRN Reason: Hypertension Levothyroxine Sodium (Levothyroxine) 112 mcg PO BEDTIME [facility] Last Admin: 10/07/20 19:35 Dose: 112 mcg Documented by: Lidocaine (Lidoderm 5%) 700 mg TRDERM DAILY [facility] Last Admin: 10/08/20 09:14 Dose: 700 mg Documented by: Lisinopril (Prinivil) 5 mg PO DAILY [facility] Last Admin: 10/08/20 07:58 Dose: 5 mg Documented by: Mometasone Furoate 200mcg [Asmanex Hfa 200mcg] 2 Inh Ptom 0 inh INH BID [facility] Last Admin: 10/08/20 08:01 Dose: 2 inh Documented by: Synbiotic 365 Ptom () 0 each PO DAILY [facility] Last Admin: 10/08/20 08:00 Dose: 1 each Documented by: Ondansetron HCl (Zofran Odt) 4 mg PO Q4H PRN PRN Reason: nausea, able to take PO Pantoprazole Sodium (Protonix) 40 mg PO DAILY PRN PRN Reason: Heartburn Last Admin: 10/08/20 00:46 Dose: 40 mg Documented by: Senna/Docusate Sodium (Senna Plus) 1 tab PO BID PRN PRN Reason: Constipation Last Admin: 10/07/20 13:41 Dose: 1 tab Documented by: Sodium Chloride (Saline Flush) 10 ml FLUSH ASDIRECTED PRN PRN Reason: Keep Vein Open Temazepam (Restoril) 15 mg PO BEDTIME PRN PRN Reason: Sleep Discontinued Medications Albuterol (Proventil Neb Soln) 1.25 mg NEB TIDRT [facility] Fentanyl (Sublimaze) 25 mcg IVPUSH Q4H [facility] Last Admin: 10/06/20 22:23 Dose: Not Given Documented by: Non-Formulary Medication (Mometasone Furoate 200mcg [Asmanex Hfa 200mcg]) 2 inh INH DAILY [facility] - Exam General: Alert, Oriented, Cooperative, Mild Distress Lungs: Normal Respiratory Effort, Crackles (bilateral bases). No: Rhonchi, Wheezing Cardiovascular: Regular Rate, Regular Rhythm GI/Abdominal Exam: Normal Bowel Sounds, Soft, Non-Tender, No Mass Back Exam: Decreased Range of Motion, Muscle Spasm, Paraspinal Tenderness (Left sided only) Extremities: Normal Inspection, Pedal Edema (trace) Peripheral Pulses: 2+: Dorsalis Pedis (L), Dorsalis Pedis (R) Skin: Warm, Dry, Intact Neurological: No New Focal Deficit Psy/Mental Status: Alert, Normal Affect, Normal Mood Sepsis Event Note - Evaluation Sepsis Screening Result: No Definite Risk - Focused Exam Vital Signs: Vital Signs Temp Pulse Resp BP BP Pulse Ox 10/08/20 07:58 111/56 L 10/08/20 03:30 98.3 F 67 18 133/67 95 10/07/20 23:22 98.0 F 64 18 114/55 L 92 L - Problem List & Annotations (1) Compression fracture of T8 vertebra SNOMED Code(s): 646618935 Code(s): S22.060A - WEDGE COMPRESSION FRACTURE OF T7-T8 VERTEBRA, INIT Status: Acute Priority: High Current Visit: Yes Qualifiers: Encounter type: initial encounter Qualified Code(s): S22.060A - Wedge compression fracture of T7-T8 vertebra, initial encounter for closed fracture - Problem List Review Problem List Initiated/Reviewed/Updated: Yes - My Orders Last 24 Hours: My Active Orders 10/07/20 08:23 Cyclobenzaprine [Flexeril] 10 mg PO TID PRN 10/07/20 11:06 Docusate Sodium/Sennosides [Senna Plus] 1 tab PO BID PRN 10/08/20 08:00 Non-Formulary Medication [NF Drug] 0 each PO DAILY 10/08/20 08:04 RT Incentive Spirometry [RC] ASDIRECTED Chest 2V [CR] Routine 10/08/20 09:00 Lidocaine 5% [Lidoderm 5%] 700 mg TRDERM DAILY - Plan Plan:: Patient will undergo MRI of the lumbar spine tomorrow. Plan for physical therapy to evaluate and treat. Will continue IV pain medication and wean as tolerated. Will start stool softener as well. Reevaluate tomorrow. 10/08/2020 Patient will proceed with MRI today. Would like physical therapy to continue treatment at this time. Will start Lidocaine patch today. Discussed shallow breathing and concern of pneumonia's, atelectasis with Anna. Will initiate incentive spirometry today. Chest x-ray pending.
[2020-10-08] MEDS: Enoxaparin 30 MG/0.3 ML Syringe SUBCUT SCH (19:33)
[2020-10-08] MEDS: Levothyroxine 112 MCG Tab PO SCH (19:34)
[2020-10-08] MEDS: amLODIPine 10 MG Tab PO SCH (19:34)
[2020-10-08] MEDS: Cyclobenzaprine 10 MG Tab PO PRN (20:38)
[2020-10-09] MEDS: Acetaminophen/HYDROcodone 325-5 MG Tab PO PRN (06:08)
[2020-10-09] MEDS: Gabapentin 100 MG Cap PO SCH (07:31)
[2020-10-09] MEDS: [UNRECOGNIZED DRUG - OTHER] PO SCH (07:31)
[2020-10-09] MEDS: MOMETASONE FUROATE 200 MCG INH SCH (07:32)
[2020-10-09] MEDS: Calcium Carbonate/Vitamin D3 1250 MG-200 Unit Tab PO SCH (07:32)
[2020-10-09] MEDS: Cholecalciferol (Vitamin D3) 25 MCG Tab PO SCH (07:33)
[2020-10-09] MEDS: Lidocaine 5% 700 MG Patch TRDERM SCH (07:34)
[2020-10-09] MEDS: Albuterol 0.042% 1.25 MG/3 ML Neb Soln NEB SCH (07:34)
[2020-10-09] MEDS ORDERED: Polyethylene Glycol 3350 Powder 17 GM Packet PO PRN (07:38)
[2020-10-09] MEDS: Lisinopril 5 MG Tab PO SCH (08:05)
[2020-10-09 08:06] VITALS: BP 133/70
[2020-10-09 08:47] VITALS: PULSE 73
--- NOTE | 2020-10-09 09:06 | PCM.DCSUM1 ---
Discharge Summary - Hospital Course HPI Initial Comments: This patient was seen in the ER post fall with back pain. Patient was admitted for pain control and had an MRI. MRI showed compression fracture thoracic. Today, the patient reports that her pain is a little worse today. Patient reports though that she is constipated and feels full. She reports that she needs to have a BM and feels that may help her back pain some. Patient was given Miralax for constipation. Patient has no other complaints. No neurological symptoms. No urinary or bowel incontinence. Patient reports that she is struggling to get up by herself. She is able to ambulate with walker with some assistance. Will swing patient today for PT. - Discharge Data Discharge Date: 10/09/20 Discharge Disposition: DC/Tfer W/I Hosp To Swing 61 Condition: Stable - Referral to Home Health Primary Care Physician: MCKAY Gallo - Patient Summary/Data Consults: Consultations 10/06/20 20:46 PT Evaluation and Treatment [CONS] Routine - Patient Instructions Diet: Usual Diet as Tolerated Activity: As Tolerated Driving: Do Not Drive Notify Provider of: Fever, Increased Pain, Swelling and Redness, Drainage, Nausea and/or Vomiting - Discharge Plan *PRESCRIPTION DRUG MONITORING PROGRAM REVIEWED*: No *COPY OF PRESCRIPTION DRUG MONITORING REPORT IN PATIENT BRIA: No Home Medications: Home Meds Levothyroxine 112 mcg PO BEDTIME 09/24/15 [History] Fish Oil/[place]-3 Fatty Acids [Fish Oil 1,000 MG] 2,000 mg PO DAILY 10/06/18 [History] hydrALAZINE [Apresoline] 25 mg PO TID PRN 10/15/18 [History] Albuterol [Proventil Neb Soln] 1 inhalation NEB TID 10/06/20 [History] Calcium Carb, Citrate/Vit D3 [Calcium + D3 ER Tablet] 800 mg PO DAILY 10/06/20 [History] Cholecalciferol (Vitamin D3) [Vitamin D3] 5,000 unit PO DAILY 10/06/20 [History] Gabapentin [Neurontin] 200 mg PO TID 10/06/20 [History] Mometasone Furoate 200mcg [Asmanex HFA 200mcg] 2 inh INH BID 10/06/20 [History] Omeprazole 20 mg PO DAILY PRN 10/06/20 [History] lisinopriL [Lisinopril] 5 mg PO DAILY 10/06/20 [History] L.acidoph,Paracasei, B.lactis [Probiotic] 1 tab PO DAILY 10/07/20 [History] Acetaminophen [Tylenol] 650 mg PO Q4H PRN tablet 10/09/20 [Rx] Acetaminophen/HYDROcodone [[place] 325-5 MG] 1 - 2 tab PO Q4H PRN tablet 10/09/20 [Rx] Albuterol [Proventil Neb Soln] 1.25 mg NEB TIDRT neb 10/09/20 [Rx] Cyclobenzaprine [Flexeril] 10 mg PO TID PRN tablet 10/09/20 [Rx] Docusate Sodium/Sennosides [Senna Plus] 1 tab PO BID PRN tablet 10/09/20 [Rx] Enoxaparin [Lovenox] 30 mg SUBCUT BEDTIME syringe 10/09/20 [Rx] Gabapentin [Neurontin] 200 mg PO TID cap 10/09/20 [Rx] Levothyroxine 112 mcg PO BEDTIME tablet 10/09/20 [Rx] Lidocaine 5% [Lidoderm 5%] 700 mg TRDERM DAILY patch 10/09/20 [Rx] Mometasone Furoate 200mcg [Asmanex HFA 200mcg] 0 inh INH BID 10/09/20 [Rx] Non-Formulary Medication [NF Drug] 0 each PO DAILY each 10/09/20 [Rx] Ondansetron [Zofran ODT] 4 mg PO Q4H PRN tab.dis 10/09/20 [Rx] Pantoprazole [ProTONIX] 40 mg PO DAILY PRN tab.cr 10/09/20 [Rx] Sodium Chloride 0.9% [Saline Flush] 10 ml FLUSH ASDIRECTED PRN syringe 10/09/20 [Rx] Temazepam [Restoril] 15 mg PO BEDTIME PRN cap 10/09/20 [Rx] fentaNYL [Sublimaze] 25 mcg IVPUSH Q12H sdv 10/09/20 [Rx] lisinopriL [Prinivil] 5 mg PO DAILY tablet 10/09/20 [Rx] polyethylene glycoL 3350 [MiraLAX] 17 gm PO DAILY PRN packet 10/09/20 [Rx] Forms: ED Department Discharge Referrals: Annalee Hanson PA [Primary Care Provider] - - Discharge Summary/Plan Comment DC Time >30 min.: No - General Info Functional Status: Reports: Tolerating Diet, Ambulating (with walker and assistance), Other (lower/mid back pain) - Review of Systems General: Reports: No Symptoms HEENT: Reports: No Symptoms Pulmonary: Reports: No Symptoms Cardiovascular: Reports: No Symptoms Gastrointestinal: Reports: No Symptoms Genitourinary: Reports: No Symptoms Musculoskeletal: Reports: Back Pain Skin: Reports: No Symptoms Neurological: Reports: No Symptoms Psychiatric: Reports: No Symptoms - Patient Data Vitals - Most Recent: Last Vital Signs Temp 97.7 F 10/09/20 08:00 Pulse 73 10/09/20 08:00 Resp 18 10/09/20 08:00 BP 133/70 10/09/20 08:05 Pulse Ox 94 L 10/09/20 08:00 Weight - Most Recent: 185 lb Med Orders - Current: Current Medications Acetaminophen (Tylenol) 650 mg PO Q4H PRN PRN Reason: Pain (Mild 1-3)/fever Last Admin: 10/07/20 16:11 Dose: 650 mg Documented by: Hydrocodone Bitart/Acetaminophen ([place] 325-5 Mg) 1 - 2 tab PO Q4H PRN PRN Reason: Pain Last Admin: 10/09/20 06:08 Dose: 2 tab Documented by: Albuterol (Proventil Neb Soln) 1.25 mg NEB TIDRT [facility] Last Admin: 10/09/20 07:34 Dose: 1.25 mg Documented by: Amlodipine Besylate (Norvasc) 5 mg PO BEDTIME [facility] Last Admin: 10/08/20 19:34 Dose: 5 mg Documented by: Calcium Carbonate (Calcium Carbonate/Vitamin D 1250 Mg-200 Unit) 1 tab PO BID S Last Admin: 10/09/20 07:32 Dose: 1 tab Documented by: Cholecalciferol (Vitamin D3) 125 mcg PO DAILY [facility] Last Admin: 10/09/20 07:33 Dose: 125 mcg Documented by: Cyclobenzaprine HCl (Flexeril) 10 mg PO TID PRN PRN Reason: Spasms Last Admin: 10/08/20 20:38 Dose: 10 mg Documented by: Enoxaparin Sodium (Lovenox) 30 mg SUBCUT BEDTIME [facility] Last Admin: 10/08/20 19:33 Dose: 30 mg Documented by: Fentanyl (Sublimaze) 25 mcg IVPUSH Q12H [facility] Last Admin: 10/08/20 20:37 Dose: 25 mcg Documented by: Gabapentin (Neurontin) 200 mg PO TID [facility] Last Admin: 10/09/20 07:31 Dose: 200 mg Documented by: Hydralazine HCl (Apresoline) 25 mg PO TID PRN PRN Reason: Hypertension Levothyroxine Sodium (Levothyroxine) 112 mcg PO BEDTIME [facility] Last Admin: 10/08/20 19:34 Dose: 112 mcg Documented by: Lidocaine (Lidoderm 5%) 700 mg TRDERM DAILY [facility] Last Admin: 10/09/20 07:34 Dose: 700 mg Documented by: Lisinopril (Prinivil) 5 mg PO DAILY [facility] Last Admin: 10/09/20 08:05 Dose: 5 mg Documented by: Mometasone Furoate 200mcg [Asmanex Hfa 200mcg] 2 Inh Ptom 0 inh INH BID [facility] Last Admin: 10/09/20 07:32 Dose: 2 inh Documented by: Synbiotic 365 Ptom () 0 each PO DAILY [facility] Last Admin: 10/09/20 07:31 Dose: 1 each Documented by: Ondansetron HCl (Zofran Odt) 4 mg PO Q4H PRN PRN Reason: nausea, able to take PO Pantoprazole Sodium (Protonix) 40 mg PO DAILY PRN PRN Reason: Heartburn Last Admin: 10/08/20 00:46 Dose: 40 mg Documented by: Polyethylene Glycol (Miralax) 17 gm PO DAILY PRN PRN Reason: Constipation Last Admin: 10/09/20 07:49 Dose: 17 gm Documented by: Senna/Docusate Sodium (Senna Plus) 1 tab PO BID PRN PRN Reason: Constipation Last Admin: 10/08/20 15:42 Dose: 1 tab Documented by: Sodium Chloride (Saline Flush) 10 ml FLUSH ASDIRECTED PRN PRN Reason: Keep Vein Open Temazepam (Restoril) 15 mg PO BEDTIME PRN PRN Reason: Sleep Discontinued Medications Hydrocodone Bitart/Acetaminophen ([place] 325-5 Mg) 1 - 2 tab PO Q6H PRN PRN Reason: Pain (moderate 4-6) Last Admin: 10/08/20 12:30 Dose: 2 tab Documented by: Albuterol (Proventil Neb Soln) 1.25 mg NEB TIDRT [facility] Fentanyl (Sublimaze) 25 mcg IVPUSH Q4H [facility] Last Admin: 10/06/20 22:23 Dose: Not Given Documented by: Non-Formulary Medication (Mometasone Furoate 200mcg [Asmanex Hfa 200mcg]) 2 inh INH DAILY [facility] - Exam General: Reports: Alert, Oriented, Cooperative, No Acute Distress Lungs: Reports: Clear to Auscultation, Normal Respiratory Effort Cardiovascular: Reports: Regular Rate, Regular Rhythm GI/Abdominal Exam: Soft, Non-Tender, Distended Back Exam: Reports: Normal Inspection, Full Range of Motion, Decreased Range of Motion (due to pain, twisting rotating of the lower trunk), Paraspinal Tenderness (bilateral lumbar), Vertebral Tenderness (mid/lower thoracic). Denies: Muscle Spasm Extremities: Normal Inspection, Normal Range of Motion, Non-Tender, Normal Capillary Refill Skin: Reports: Warm, Dry, Intact Neurological: Reports: No New Focal Deficit Psy/Mental Status: Reports: Alert, Normal Affect, Normal Mood
[2020-10-09] MEDS: fentaNYL 100 MCG/2 ML SDV IVPUSH SCH (10:24)
== END 2020-10-09 09:23 | disposition swing bed (61) | DRG 552 ==
LOC: CC.ED 19:04 → UNDOADMIN 20:10 → CC.MS 20:10
PROVIDERS: ADMIT Physician Assistant Medical; ATTEND Family Medicine
DX: S22.060A Wedge compression fracture of T7-T8 vertebra, initial encounter for closed fracture (principal); I16.0 Hypertensive urgency; W19.XXXA Unspecified fall, initial encounter; H54.7 Unspecified visual loss; E78.00 Pure hypercholesterolemia, unspecified; I10 Essential (primary) hypertension; J45.909 Unspecified asthma, uncomplicated; G47.30 Sleep apnea, unspecified; K21.9 Gastro-esophageal reflux disease without esophagitis; K59.00 Constipation, unspecified; M19.90 Unspecified osteoarthritis, unspecified site; E03.9 Hypothyroidism, unspecified; Z85.828 Personal history of other malignant neoplasm of skin; Z88.5 Allergy status to narcotic agent; Z88.6 Allergy status to analgesic agent; Z88.2 Allergy status to sulfonamides; Z88.1 Allergy status to other antibiotic agents; Z90.49 Acquired absence of other specified parts of digestive tract; Z90.710 Acquired absence of both cervix and uterus; Z88.8 Allergy status to other drugs, medicaments and biological substances; Z79.890 Hormone replacement therapy; Z79.899 Other long term (current) drug therapy; Z20.822 Contact with and (suspected) exposure to COVID-19
CPT/HCPCS: 36415; 71046; 72100; 72146; 80048; 85025; 86140; 94640; 97161-GP; 97530-GP; 99284-25; A9270-GY; J1650; J3010; U0002

== ENCOUNTER 2020-10-09 09:23 | Inpatient (IN) | payer MEDICARE, BC ==
[2020-10-09] MEDS ORDERED: Polyethylene Glycol 3350 Powder 17 GM Packet PO PRN (10:07)
[2020-10-09] MEDS ORDERED: Ondansetron 4 MG Tab.DIS PO PRN (10:07)
[2020-10-09] MEDS ORDERED: Temazepam 15 MG Cap PO PRN (10:07)
[2020-10-09] MEDS ORDERED: Pantoprazole 40 MG Tab.CR PO PRN (10:07)
[2020-10-09] MEDS ORDERED: hydrALAZINE 25 MG Tab PO PRN (10:07)
[2020-10-09] MEDS ORDERED: Sodium Chloride 0.9% 10 ML Syringe FLUSH PRN ×2 (10:07)
[2020-10-09] MEDS: Acetaminophen/HYDROcodone 325-5 MG Tab PO PRN (12:13)
[2020-10-09] MEDS: Gabapentin 100 MG Cap PO SCH ×2 (14:08→19:19)
[2020-10-09] MEDS: Albuterol 0.042% 1.25 MG/3 ML Neb Soln NEB SCH ×2 (14:08→19:21)
[2020-10-09] MEDS: Cyclobenzaprine 10 MG Tab PO PRN (14:11)
[2020-10-09] MEDS: Acetaminophen 325 MG Tab PO PRN (18:18)
[2020-10-09] MEDS: Calcium Carbonate/Vitamin D3 1250 MG-200 Unit Tab PO SCH (19:18)
[2020-10-09] MEDS: Enoxaparin 40 MG/0.4 ML Syringe SUBCUT SCH (19:18)
[2020-10-09] MEDS: Levothyroxine 112 MCG Tab PO SCH (19:19)
[2020-10-09] MEDS: amLODIPine 10 MG Tab PO SCH (19:19)
[2020-10-09] MEDS: MOMETASONE FUROATE INH SCH (19:20)
[2020-10-09] MEDS ORDERED: fentaNYL 100 MCG/2 ML SDV IVPUSH SCH (21:00)
[2020-10-10] MEDS: Cyclobenzaprine 10 MG Tab PO PRN ×2 (00:26→11:50)
[2020-10-10] MEDS: Acetaminophen/HYDROcodone 325-5 MG Tab PO PRN (04:53)
[2020-10-10] MEDS ORDERED: Bisacodyl 10 MG Supp RECTAL PRN (05:27)
[2020-10-10] MEDS: Lidocaine 5% 700 MG Patch TRDERM SCH (07:45)
[2020-10-10] MEDS: Gabapentin 100 MG Cap PO SCH ×3 (07:47→19:27)
[2020-10-10] MEDS: Calcium Carbonate/Vitamin D3 1250 MG-200 Unit Tab PO SCH ×2 (07:48→19:27)
[2020-10-10] MEDS: Cholecalciferol (Vitamin D3) 25 MCG Tab PO SCH (07:48)
[2020-10-10] MEDS: Lisinopril 5 MG Tab PO SCH (07:49)
[2020-10-10] MEDS: MOMETASONE FUROATE INH SCH ×2 (07:49→21:16)
[2020-10-10] MEDS: [UNRECOGNIZED DRUG - OTHER] PO SCH (07:50)
[2020-10-10] MEDS: Albuterol 0.042% 1.25 MG/3 ML Neb Soln NEB SCH ×3 (07:50→19:33)
[2020-10-10] MEDS: Acetaminophen 325 MG Tab PO PRN (14:45)
[2020-10-10] MEDS: fentaNYL 100 MCG/2 ML SDV IVPUSH PRN (16:30)
[2020-10-10] MEDS: Enoxaparin 40 MG/0.4 ML Syringe SUBCUT SCH (19:26)
[2020-10-10] MEDS: amLODIPine 10 MG Tab PO SCH (19:27)
[2020-10-10] MEDS: Levothyroxine 112 MCG Tab PO SCH (19:27)
[2020-10-11] MEDS: Cyclobenzaprine 10 MG Tab PO PRN ×3 (00:41→20:58)
[2020-10-11] MEDS: Acetaminophen/HYDROcodone 325-5 MG Tab PO PRN (06:13)
[2020-10-11] MEDS: Cholecalciferol (Vitamin D3) 25 MCG Tab PO SCH (07:49)
[2020-10-11] MEDS: Calcium Carbonate/Vitamin D3 1250 MG-200 Unit Tab PO SCH ×2 (07:49→19:48)
[2020-10-11] MEDS: Albuterol 0.042% 1.25 MG/3 ML Neb Soln NEB SCH ×3 (07:49→19:49)
[2020-10-11] MEDS: Lisinopril 5 MG Tab PO SCH (07:49)
[2020-10-11] MEDS: Gabapentin 100 MG Cap PO SCH ×3 (07:50→19:48)
[2020-10-11] MEDS: Lidocaine 5% 700 MG Patch TRDERM SCH (07:50)
[2020-10-11] MEDS: [UNRECOGNIZED DRUG - OTHER] PO SCH (07:51)
[2020-10-11] MEDS: MOMETASONE FUROATE INH SCH ×2 (07:52→19:50)
[2020-10-11] MEDS ORDERED: oxyCODONE 5 MG Tab PO PRN (09:22)
[2020-10-11] MEDS: fentaNYL 100 MCG/2 ML SDV IVPUSH PRN (12:18)
[2020-10-11] MEDS: traMADol 50 MG Tab PO PRN ×2 (14:27→20:58)
[2020-10-11] MEDS: Enoxaparin 40 MG/0.4 ML Syringe SUBCUT SCH (19:47)
[2020-10-11] MEDS: amLODIPine 10 MG Tab PO SCH (19:48)
[2020-10-11] MEDS: Levothyroxine 112 MCG Tab PO SCH (19:49)
--- NOTE | 2020-10-11 23:08 | PCM.SN.2 ---
- Free Text/Narrative Note: Anna has been concerned of ongoing discomfort from T8 compression fracture. States the hydrocodone has not helped her and the only thing that has helped is the muscle relaxer. She admits it doesn't last through out the duration before next dose. States she has been more active but continues to have significant dis comfort with ambulation or moving. She doesn't feel the Fentanyl has helped much. Consulted with Dr. Keshav Russo, interventional radiologist, at [facility] in [place]. He was able to review her recent MRI and felt she likely would be a candidate for vertebroplasty and recommended setting up for consult. I discussed into detail with Anan and daughter in law, Fern, treatment options. Anna does feel that pain has improved since initial onset and doesn't feel transporting to [place] is a great option right now. Would like to work on pain control. Will switch [place] to Tramadol as she doesn't tolerate oxycodone. Flexeril to be given q6h prn. Other options included Fentanyl patch, Valium, etc.. Will continue with PT as well. Patient in agreement with tentative plan. Appointment scheduled for the 18 of October for consultation in regards to vertebroplasty. Patient in agreement. Cindy Bustamante will contact [facility] in [place] for possible TSLO fitting.
[2020-10-12] MEDS: traMADol 50 MG Tab PO PRN ×3 (04:38→21:37)
[2020-10-12] MEDS: Lidocaine 5% 700 MG Patch TRDERM SCH (07:52)
[2020-10-12] MEDS: Albuterol 0.042% 1.25 MG/3 ML Neb Soln NEB SCH ×3 (07:52→20:09)
[2020-10-12] MEDS: Lisinopril 5 MG Tab PO SCH (07:53)
[2020-10-12] MEDS: Calcium Carbonate/Vitamin D3 1250 MG-200 Unit Tab PO SCH ×2 (07:53→20:03)
[2020-10-12] MEDS: MOMETASONE FUROATE INH SCH ×2 (07:53→20:09)
[2020-10-12] MEDS: Cholecalciferol (Vitamin D3) 25 MCG Tab PO SCH (07:53)
[2020-10-12] MEDS: Gabapentin 100 MG Cap PO SCH ×3 (07:53→20:05)
[2020-10-12] MEDS: Cyclobenzaprine 10 MG Tab PO PRN ×2 (08:01→14:13)
[2020-10-12] MEDS: [UNRECOGNIZED DRUG - OTHER] PO SCH (08:02)
[2020-10-12] MEDS: fentaNYL 100 MCG/2 ML SDV IVPUSH PRN (11:15)
[2020-10-12] MEDS: Levothyroxine 112 MCG Tab PO SCH (20:04)
[2020-10-12] MEDS: amLODIPine 10 MG Tab PO SCH (20:06)
[2020-10-12] MEDS: Enoxaparin 40 MG/0.4 ML Syringe SUBCUT SCH (20:07)
[2020-10-13] MEDS: traMADol 50 MG Tab PO PRN ×3 (05:58→19:36)
[2020-10-13] MEDS: Cholecalciferol (Vitamin D3) 25 MCG Tab PO SCH (08:12)
[2020-10-13] MEDS: Albuterol 0.042% 1.25 MG/3 ML Neb Soln NEB SCH ×3 (08:13→19:29)
[2020-10-13] MEDS: Lisinopril 5 MG Tab PO SCH (08:13)
[2020-10-13] MEDS: [UNRECOGNIZED DRUG - OTHER] PO SCH (08:13)
[2020-10-13] MEDS: Gabapentin 100 MG Cap PO SCH ×3 (08:13→19:30)
[2020-10-13] MEDS: MOMETASONE FUROATE INH SCH ×2 (08:13→19:32)
[2020-10-13] MEDS: Calcium Carbonate/Vitamin D3 1250 MG-200 Unit Tab PO SCH ×2 (08:13→19:31)
[2020-10-13] MEDS: Lidocaine 5% 700 MG Patch TRDERM SCH (08:15)
[2020-10-13] MEDS: Cyclobenzaprine 10 MG Tab PO PRN ×2 (08:19→17:27)
[2020-10-13] MEDS: Enoxaparin 40 MG/0.4 ML Syringe SUBCUT SCH (19:29)
[2020-10-13] MEDS: amLODIPine 10 MG Tab PO SCH (19:29)
[2020-10-13] MEDS: Levothyroxine 112 MCG Tab PO SCH (19:29)
[2020-10-14] MEDS: Cyclobenzaprine 10 MG Tab PO PRN ×3 (04:07→19:03)
[2020-10-14] MEDS: Lidocaine 5% 700 MG Patch TRDERM SCH (07:55)
[2020-10-14] MEDS: Cholecalciferol (Vitamin D3) 25 MCG Tab PO SCH (07:55)
[2020-10-14] MEDS: Calcium Carbonate/Vitamin D3 1250 MG-200 Unit Tab PO SCH ×2 (07:56→19:47)
[2020-10-14] MEDS: Albuterol 0.042% 1.25 MG/3 ML Neb Soln NEB SCH ×3 (07:56→19:47)
[2020-10-14] MEDS: traMADol 50 MG Tab PO PRN (07:56)
[2020-10-14] MEDS: Lisinopril 5 MG Tab PO SCH (07:56)
[2020-10-14] MEDS: Gabapentin 100 MG Cap PO SCH ×3 (07:56→19:47)
[2020-10-14] MEDS: [UNRECOGNIZED DRUG - OTHER] PO SCH (07:57)
[2020-10-14] MEDS: MOMETASONE FUROATE INH SCH ×2 (07:57→19:48)
[2020-10-14] MEDS ORDERED: Furosemide 20 MG Tab PO PRN (13:29)
[2020-10-14] MEDS: Enoxaparin 40 MG/0.4 ML Syringe SUBCUT SCH (19:46)
[2020-10-14] MEDS: Levothyroxine 112 MCG Tab PO SCH (19:47)
[2020-10-14] MEDS: amLODIPine 10 MG Tab PO SCH (19:47)
[2020-10-15] MEDS: Albuterol 0.042% 1.25 MG/3 ML Neb Soln NEB SCH ×3 (07:46→20:15)
[2020-10-15] MEDS: Calcium Carbonate/Vitamin D3 1250 MG-200 Unit Tab PO SCH ×2 (07:47→20:16)
[2020-10-15] MEDS: Lidocaine 5% 700 MG Patch TRDERM SCH (07:48)
[2020-10-15] MEDS: MOMETASONE FUROATE INH SCH ×2 (07:49→20:16)
[2020-10-15] MEDS: Gabapentin 100 MG Cap PO SCH ×3 (07:50→20:18)
[2020-10-15] MEDS: Lisinopril 5 MG Tab PO SCH (07:50)
[2020-10-15] MEDS: [UNRECOGNIZED DRUG - OTHER] PO SCH (07:50)
[2020-10-15] MEDS: Cholecalciferol (Vitamin D3) 25 MCG Tab PO SCH (07:51)
[2020-10-15] MEDS: Acetaminophen 325 MG Tab PO PRN ×2 (09:51→15:22)
[2020-10-15] MEDS: Pantoprazole 40 MG Tab.CR PO SCH (09:51)
[2020-10-15] MEDS: Furosemide 20 MG Tab PO SCH (09:51)
[2020-10-15] MEDS: Ibuprofen 200 MG Tab PO PRN ×2 (09:52→21:03)
[2020-10-15] MEDS: Levothyroxine 112 MCG Tab PO SCH (20:17)
[2020-10-15] MEDS: Enoxaparin 40 MG/0.4 ML Syringe SUBCUT SCH (20:17)
[2020-10-15] MEDS: amLODIPine 10 MG Tab PO SCH (20:18)
[2020-10-16] MEDS: Benzonatate 100 MG Cap PO PRN ×3 (00:10→17:46)
[2020-10-16] MEDS: Calcium Carbonate/Vitamin D3 1250 MG-200 Unit Tab PO SCH ×2 (07:45→20:07)
[2020-10-16] MEDS: Furosemide 20 MG Tab PO SCH (07:45)
[2020-10-16] MEDS: Lidocaine 5% 700 MG Patch TRDERM SCH (07:47)
[2020-10-16] MEDS: MOMETASONE FUROATE INH SCH ×2 (07:53→20:08)
[2020-10-16] MEDS: Albuterol 0.042% 1.25 MG/3 ML Neb Soln NEB SCH ×3 (07:53→20:07)
[2020-10-16] MEDS: Gabapentin 100 MG Cap PO SCH ×3 (07:53→20:07)
[2020-10-16] MEDS: Pantoprazole 40 MG Tab.CR PO SCH (07:54)
[2020-10-16] MEDS: [UNRECOGNIZED DRUG - OTHER] PO SCH (07:54)
[2020-10-16] MEDS: Lisinopril 5 MG Tab PO SCH (07:54)
[2020-10-16] MEDS: Cholecalciferol (Vitamin D3) 25 MCG Tab PO SCH (07:55)
[2020-10-16] MEDS: Ibuprofen 200 MG Tab PO PRN ×2 (08:04→21:13)
[2020-10-16] MEDS: Enoxaparin 40 MG/0.4 ML Syringe SUBCUT SCH (20:07)
[2020-10-16] MEDS: Levothyroxine 112 MCG Tab PO SCH (20:07)
[2020-10-16] MEDS: amLODIPine 10 MG Tab PO SCH (20:07)
[2020-10-16] MEDS: Acetaminophen 325 MG Tab PO PRN (21:13)
[2020-10-17] MEDS: Benzonatate 100 MG Cap PO PRN ×2 (02:33→13:22)
[2020-10-17] MEDS: Calcium Carbonate/Vitamin D3 1250 MG-200 Unit Tab PO SCH ×2 (07:51→20:16)
[2020-10-17] MEDS: Furosemide 20 MG Tab PO SCH (07:51)
[2020-10-17] MEDS: Albuterol 0.042% 1.25 MG/3 ML Neb Soln NEB SCH ×3 (07:51→20:15)
[2020-10-17] MEDS: Cholecalciferol (Vitamin D3) 25 MCG Tab PO SCH (07:54)
[2020-10-17] MEDS: Pantoprazole 40 MG Tab.CR PO SCH (07:55)
[2020-10-17] MEDS: Lisinopril 5 MG Tab PO SCH (07:55)
[2020-10-17] MEDS: Gabapentin 100 MG Cap PO SCH ×3 (07:55→20:15)
[2020-10-17] MEDS: [UNRECOGNIZED DRUG - OTHER] PO SCH (07:56)
[2020-10-17] MEDS: MOMETASONE FUROATE INH SCH ×2 (07:56→20:15)
[2020-10-17] MEDS: Lidocaine 5% 700 MG Patch TRDERM SCH (07:58)
[2020-10-17] MEDS: Acetaminophen 325 MG Tab PO PRN ×2 (08:08→21:26)
[2020-10-17] MEDS: amLODIPine 10 MG Tab PO SCH (20:15)
[2020-10-17] MEDS: Enoxaparin 40 MG/0.4 ML Syringe SUBCUT SCH (20:16)
[2020-10-17] MEDS: Levothyroxine 112 MCG Tab PO SCH (20:16)
[2020-10-17] MEDS: Ibuprofen 200 MG Tab PO PRN (21:26)
[2020-10-18] MEDS: Benzonatate 100 MG Cap PO PRN ×3 (02:20→22:13)
[2020-10-18] MEDS: Lisinopril 5 MG Tab PO SCH (07:37)
[2020-10-18] MEDS: Furosemide 20 MG Tab PO SCH (07:37)
[2020-10-18] MEDS: Cholecalciferol (Vitamin D3) 25 MCG Tab PO SCH (07:37)
[2020-10-18] MEDS: Gabapentin 100 MG Cap PO SCH ×3 (07:37→19:32)
[2020-10-18] MEDS: Pantoprazole 40 MG Tab.CR PO SCH (07:37)
[2020-10-18] MEDS: [UNRECOGNIZED DRUG - OTHER] PO SCH (07:38)
[2020-10-18] MEDS: Calcium Carbonate/Vitamin D3 1250 MG-200 Unit Tab PO SCH ×2 (07:38→19:25)
[2020-10-18] MEDS: MOMETASONE FUROATE INH SCH ×2 (07:38→19:29)
[2020-10-18] MEDS: Lidocaine 5% 700 MG Patch TRDERM SCH (07:39)
[2020-10-18] MEDS: Albuterol 0.042% 1.25 MG/3 ML Neb Soln NEB SCH ×3 (07:39→19:29)
[2020-10-18] MEDS: Acetaminophen 325 MG Tab PO PRN ×3 (07:40→22:13)
[2020-10-18] MEDS: Levothyroxine 112 MCG Tab PO SCH (19:25)
[2020-10-18] MEDS: Enoxaparin 40 MG/0.4 ML Syringe SUBCUT SCH (19:26)
[2020-10-18] MEDS: amLODIPine 10 MG Tab PO SCH (19:34)
[2020-10-19] MEDS: Cholecalciferol (Vitamin D3) 25 MCG Tab PO SCH (07:16)
[2020-10-19] MEDS: Furosemide 20 MG Tab PO SCH (07:16)
[2020-10-19] MEDS: Calcium Carbonate/Vitamin D3 1250 MG-200 Unit Tab PO SCH (07:16)
[2020-10-19] MEDS: Albuterol 0.042% 1.25 MG/3 ML Neb Soln NEB SCH (07:16)
[2020-10-19] MEDS: Pantoprazole 40 MG Tab.CR PO SCH (07:16)
[2020-10-19] MEDS: Gabapentin 100 MG Cap PO SCH (07:17)
[2020-10-19] MEDS: MOMETASONE FUROATE INH SCH (07:17)
[2020-10-19] MEDS: Lidocaine 5% 700 MG Patch TRDERM SCH (07:17)
[2020-10-19] MEDS: [UNRECOGNIZED DRUG - OTHER] PO SCH (07:18)
[2020-10-19] MEDS: Acetaminophen 325 MG Tab PO PRN (07:30)
[2020-10-19 07:32] VITALS: BP 153/84; PULSE 92
[2020-10-19] MEDS: Lisinopril 5 MG Tab PO SCH (07:34)
--- NOTE | 2020-10-19 15:34 | PCM.DCSUM1 ---
Discharge Summary - Hospital Course HPI Initial Comments: Anna is an 85 yo female who was seen in the ED status post post fall with back pain. Patient was admitted for pain control and had an MRI. MRI showed compression fracture thoracic. Patient was discharged from acute care initially and placed in swing bed for alf and physical therapy for strengthening and ambulation. - Discharge Data Discharge Date: 10/19/20 Discharge Disposition: Home, Self-Care 01 Condition: Good - Referral to Home Health Primary Care Physician: PCP None - Discharge Diagnosis/Problem(s) (1) Compression fracture of T8 vertebra SNOMED Code(s): 780555591 ICD Code: S22.060A - WEDGE COMPRESSION FRACTURE OF T7-T8 VERTEBRA, INIT Status: Acute Priority: High Qualifiers: (2) Osteoporosis SNOMED Code(s): 42138059 ICD Code: M81.0 - AGE-RELATED OSTEOPOROSIS W/O CURRENT PATHOLOGICAL FRACTURE Status: Acute Qualifiers: Osteoporosis type: age-related Presence of current pathological fracture: with current pathological fracture Encounter type: initial encounter Qualified Code(s): M80.00XA - Age-related osteoporosis with current pathological fracture, unspecified site, initial encounter for fracture - Patient Summary/Data Consults: Consultations 10/09/20 10:07 PT Evaluation and Treatment [CONS] Routine - Patient Instructions Diet: Usual Diet as Tolerated Activity: As Tolerated Notify Provider of: Increased Pain - Discharge Plan Prescriptions/Med Rec: Cyclobenzaprine [Flexeril] 10 mg PO TID PRN #20 tablet PRN Reason: Spasms Furosemide [Lasix] 20 mg PO DAILY PRN #30 tablet PRN Reason: Edema lisinopriL [Prinivil] 10 mg PO DAILY #60 tablet Benzonatate [Tessalon Perle] 100 mg PO TID PRN #30 capsule PRN Reason: Cough Home Medications: Home Meds Fish Oil/[employer]-3 Fatty Acids [Fish Oil 1,000 MG] 2,000 mg PO DAILY 10/06/18 [H istory] hydrALAZINE [Apresoline] 25 mg PO TID PRN 10/15/18 [History] Calcium Carb, Citrate/Vit D3 [Calcium + D3 ER Tablet] 800 mg PO DAILY 10/06/20 [History] Cholecalciferol (Vitamin D3) [Vitamin D3] 5,000 unit PO DAILY 10/06/20 [History] Mometasone Furoate 200mcg [Asmanex HFA 200mcg] 2 inh INH BID 10/06/20 [History] Omeprazole 20 mg PO DAILY PRN 10/06/20 [History] L.acidoph,Paracasei, B.lactis [Probiotic] 1 tab PO DAILY 10/07/20 [History] Acetaminophen [Tylenol] 650 mg PO Q4H PRN tablet 10/09/20 [Rx] Albuterol [Proventil Neb Soln] 1.25 mg NEB TIDRT neb 10/09/20 [Rx] Docusate Sodium/Sennosides [Senna Plus] 1 tab PO BID PRN tablet 10/09/20 [Rx] Gabapentin [Neurontin] 200 mg PO TID cap 10/09/20 [Rx] Levothyroxine 112 mcg PO BEDTIME tablet 10/09/20 [Rx] Mometasone Furoate 200mcg [Asmanex HFA 200mcg] 0 inh INH BID 10/09/20 [Rx] Benzonatate [Tessalon Perle] 100 mg PO TID PRN #30 capsule 10/19/20 [Rx] Cyclobenzaprine [Flexeril] 10 mg PO TID PRN #20 tablet 10/19/20 [Rx] Cyclobenzaprine [Flexeril] 10 mg PO TID PRN #20 tablet 10/19/20 [Rx] Furosemide [Lasix] 20 mg PO DAILY PRN #30 tablet 10/19/20 [Rx] Ibuprofen [Motrin] 400 mg PO Q6H PRN tablet 10/19/20 [Rx] lisinopriL [Prinivil] 10 mg PO DAILY #60 tablet 10/19/20 [Rx] Oxygen Therapy Mode: Room Air Patient Handouts: Osteoporosis, [id number], Eating Plan for Osteoporosis, Spinal Compression Fracture - Discharge Summary/Plan Comment DC Time >30 min.: Yes Discharge Summary/Plan Comment: Patient has done well with physical therapy. Back brace has helped tremendously. Patient is scheduled to see Dr. Russo tomorrow in [place] to discuss vertebroplasty. Discussed pain control with Anna and she feels comfortable with Tylenol and ibuprofen. We did prescribe Flexeril as it did seem to help her during the acute phase. She however has been refraining from use d/t sedation, confusion side effects. Will only use if needed and patient and family are well aware of side effects. Will discharge home with patient in satisfactory condition. - General Info Date of Service: 10/19/20 Subjective Update: Patient has shown continued improvement since initial admission. Patient currently is only using Tylenol and ibuprofen for discomfort. Has been up ambulating with walker without difficulty. Had back brace put on last week which has better a great impact of improvement as well. Patient denies any concerns today. - Review of Systems General: Reports: No Symptoms HEENT: Reports: No Symptoms Pulmonary: Reports: No Symptoms Cardiovascular: Reports: No Symptoms Gastrointestinal: Reports: No Symptoms Genitourinary: Reports: No Symptoms Musculoskeletal: Reports: Back Pain (pain controlled) Neurological: Reports: No Symptoms - Patient Data Vitals - Most Recent: Last Vital Signs Temp 98.4 F 10/19/20 07:31 Pulse 92 10/19/20 07:31 Resp 16 10/19/20 07:31 BP 153/84 H 10/19/20 07:34 Pulse Ox 95 10/19/20 07:31 Weight - Most Recent: 189 lb 14.4 oz Med Orders - Current: Current Medications Discontinued Medications Acetaminophen (Tylenol) 650 mg PO Q4H PRN PRN Reason: Pain (Mild 1-3)/fever Last Admin: 10/19/20 07:30 Dose: 650 mg Documented by: Hydrocodone Bitart/Acetaminophen ([place] 325-5 Mg) 1 - 2 tab PO Q4H PRN PRN Reason: Pain Last Admin: 10/11/20 06:13 Dose: 1 tab Documented by: Albuterol (Proventil Neb Soln) 1.25 mg NEB TIDRT [facility] Last Admin: 10/19/20 07:16 Dose: 1.25 mg Documented by: Amlodipine Besylate (Norvasc) 5 mg PO BEDTIME [facility] Last Admin: 10/18/20 19:34 Dose: 5 mg Documented by: Benzonatate (Tessalon Perles) 100 mg PO TID PRN PRN Reason: Cough Last Admin: 10/18/20 22:13 Dose: 100 mg Documented by: Bisacodyl (Dulcolax) 10 mg RECTAL DAILY PRN PRN Reason: Constipation Calcium Carbonate (Calcium Carbonate/Vitamin D 1250 Mg-200 Unit) 1 tab PO BID [facility] Last Admin: 10/19/20 07:16 Dose: 1 tab Documented by: Cholecalciferol (Vitamin D3) 125 mcg PO DAILY [facility] Last Admin: 10/19/20 07:16 Dose: 125 mcg Documented by: Cyclobenzaprine HCl (Flexeril) 10 mg PO TID PRN PRN Reason: Spasms Last Admin: 10/11/20 00:41 Dose: 10 mg Documented by: Cyclobenzaprine HCl (Flexeril) 10 mg PO Q6H PRN PRN Reason: Spasms Last Admin: 10/14/20 19:03 Dose: 10 mg Documented by: Enoxaparin Sodium (Lovenox) 40 mg SUBCUT BEDTIME [facility] Last Admin: 10/18/20 19:26 Dose: 40 mg Documented by: Fentanyl (Sublimaze) 25 mcg IVPUSH Q12H [place] Fentanyl (Sublimaze) 25 mcg IVPUSH Q12H PRN PRN Reason: Pain Last Admin: 10/12/20 11:15 Dose: 25 mcg Documented by: Furosemide (Lasix) 20 mg PO DAILY PRN PRN Reason: Edema Last Admin: 10/14/20 14:30 Dose: 20 mg Documented by: Furosemide (Lasix) 20 mg PO DAILY [facility] Last Admin: 10/19/20 07:16 Dose: 20 mg Documented by: Gabapentin (Neurontin) 200 mg PO TID [facility] Last Admin: 10/19/20 07:17 Dose: 200 mg Documented by: Hydralazine HCl (Apresoline) 25 mg PO TID PRN PRN Reason: Hypertension Ibuprofen (Motrin) 400 mg PO Q6H PRN PRN Reason: Pain Last Admin: 10/17/20 21:26 Dose: 400 mg Documented by: Levothyroxine Sodium (Levothyroxine) 112 mcg PO BEDTIME [facility] Last Admin: 10/18/20 19:25 Dose: 112 mcg Documented by: Lidocaine (Lidoderm 5%) 700 mg TRDERM DAILY [facility] Last Admin: 10/19/20 07:17 Dose: 700 mg Documented by: Lisinopril (Prinivil) 5 mg PO DAILY [facility] Last Admin: 10/19/20 07:34 Dose: 5 mg Documented by: Miscellaneous Information (Remove Patch) 1 ea TRDERM DAILY@1999 [facility] Last Admin: 10/18/20 19:36 Dose: 1 ea Documented by: Mometasone Furoate 200mcg/Inh *Pt Own Med* 2 inh INH BID [facility] Last Admin: 10/19/20 07:17 Dose: 2 inh Documented by: Synbiotic [id number] *Pt (Own Med*) 1 each PO DAILY [facility] Last Admin: 10/19/20 07:18 Dose: 1 each Documented by: Ondansetron HCl (Zofran Odt) 4 mg PO Q4H PRN PRN Reason: nausea, able to take PO Oxycodone HCl (Oxycodone) 5 mg PO Q6H PRN PRN Reason: Pain (severe 7-10) Pantoprazole Sodium (Protonix) 40 mg PO DAILY PRN PRN Reason: Heartburn Last Admin: 10/11/20 17:38 Dose: 40 mg Documented by: Pantoprazole Sodium (Protonix) 40 mg PO DAILY [facility] Last Admin: 10/19/20 07:16 Dose: 40 mg Documented by: Polyethylene Glycol (Miralax) 17 gm PO DAILY PRN PRN Reason: Constipation Senna/Docusate Sodium (Senna Plus) 1 tab PO BID PRN PRN Reason: Constipation Last Admin: 10/09/20 15:46 Dose: 1 tab Documented by: Sodium Chloride (Saline Flush) 10 ml FLUSH ASDIRECTED PRN PRN Reason: Keep Vein Open Sodium Chloride (Saline Flush) 10 ml FLUSH ASDIRECTED PRN PRN Reason: Keep Vein Open Temazepam (Restoril) 15 mg PO BEDTIME PRN PRN Reason: Sleep Last Admin: 10/14/20 22:07 Dose: 15 mg Documented by: Tramadol HCl (Ultram) 50 mg PO Q4H PRN PRN Reason: Pain (moderate 4-6) Last Admin: 10/14/20 07:56 Dose: 50 mg Documented by: - Exam General: Reports: Alert, Oriented, Cooperative, No Acute Distress Lungs: Reports: Clear to Auscultation, Normal Respiratory Effort Cardiovascular: Reports: Regular Rate, Regular Rhythm, Murmurs GI/Abdominal Exam: Normal Bowel Sounds, Soft, Non-Tender, No Distention Back Exam: Reports: Decreased Range of Motion, Vertebral Tenderness Extremities: Normal Inspection, Pedal Edema (trace left) Skin: Reports: Warm, Dry, Intact Neurological: Reports: No New Focal Deficit
== END 2020-10-19 13:15 | disposition home or self-care (01) | DRG 561 ==
LOC: UNDOADMIN 09:23 → CC.MS 09:23
PROVIDERS: ADMIT Nurse Practitioner; ATTEND Family Medicine
DX: S22.060D Wedge compression fracture of T7-T8 vertebra, subsequent encounter for fracture with routine healing (principal); Z79.899 Other long term (current) drug therapy; Z79.890 Hormone replacement therapy; M80.00XD Age-related osteoporosis with current pathological fracture, unspecified site, subsequent encounter for fracture with routine healing; W19.XXXD Unspecified fall, subsequent encounter
CPT/HCPCS: 36415; 77080; 80048; 81003; 85025; 94640; 97110-GP; 97164-GP; 97530-GP; A9270-GY; J1650; J3010

== ENCOUNTER 2021-09-20 05:58 | Emergency (ER) | payer MEDICARE, BC ==
[2021-09-20 06:03] VITALS: PULSE 58
[2021-09-20] MEDS ORDERED: cloNIDine 0.1 MG Tab PO STA (06:03)
[2021-09-20] MEDS ORDERED: Lisinopril 10 MG Tab PO ONE (07:00)
--- NOTE | 2021-09-20 07:07 | EDM.PDOC ---
ED HPI GENERAL MEDICAL PROBLEM - General Chief Complaint: Cardiovascular Problem Stated Complaint: high BP Time Seen by Provider: 09/20/21 06:10 Source of Information: Reports: Patient, RN History Limitations: Reports: No Limitations - History of Present Illness INITIAL COMMENTS - FREE TEXT/NARRATIVE: States that her BP has been high for a couple of days. She has taken her extra clonidine and increased her lisinopril on her own to get it down. It did go down last evening but it was back up this AM so came to the ER. She brings in a list of BP readings from yesterday that very greatly. She took it at least 20 times yesterday. She becomes more anxious when she discusses it. She states that she has been on BP meds for many years and had been controlled on 5 mg daily until recently. She has been in the ER on previous episodes for BP issues. She does have clonidine at home but did not take it this AM. Onset: Gradual Location: Denies: Chest Associated Symptoms: Reports: No Other Symptoms - Related Data Allergies Allergy/AdvReac Type Severity Reaction Status Date / Time arformoterol [From Brovana] Allergy Rash Verified 09/20/21 06:31 budesonide [From Symbicort] Allergy Swelling Verified 09/20/21 06:31 fluticasone Allergy Cannot Verified 09/20/21 06:31 [From Advair Diskus] Remember formoterol fumarate Allergy Swelling Verified 09/20/21 06:31 [From Symbicort] oxycodone [From Percocet] Allergy Dizziness Verified 09/20/21 06:31 salmeterol Allergy Cannot Verified 09/20/21 06:31 [From Advair Diskus] Remember sulfamethoxazole Allergy Rash Verified 09/20/21 06:31 [From Bactrim] trimethoprim [From Bactrim] Allergy Rash Verified 09/20/21 06:31 urofollitropin Allergy Swelling Verified 09/20/21 06:31 [From Bravelle] Home Meds: Home Meds Fish Oil/[place]-3 Fatty Acids [Fish Oil 1,000 MG] 2,000 mg PO DAILY 10/06/18 [History] Calcium Carb, Citrate/Vit D3 [Calcium + D3 ER Tablet] 800 mg PO DAILY 10/06/20 [History] Cholecalciferol (Vitamin D3) [Vitamin D3] 5,000 unit PO DAILY 10/06/20 [History] Mometasone Furoate 200mcg [Asmanex HFA 200mcg] 2 inh INH BID 10/06/20 [History] Omeprazole 20 mg PO DAILY PRN 10/06/20 [History] L.acidoph,Paracasei, B.lactis [Probiotic] 1 tab PO DAILY 10/07/20 [History] Acetaminophen [Tylenol] 650 mg PO Q4H PRN tablet 10/09/20 [Rx] Albuterol [Proventil Neb Soln] 1.25 mg NEB TIDRT neb 10/09/20 [Rx] Docusate Sodium/Sennosides [Senna Plus] 1 tab PO BID PRN tablet 10/09/20 [Rx] Levothyroxine 112 mcg PO BEDTIME tablet 10/09/20 [Rx] Benzonatate [Tessalon Perle] 100 mg PO TID PRN #30 capsule 10/19/20 [Rx] Furosemide [Lasix] 20 mg PO DAILY PRN #30 tablet 10/19/20 [Rx] Ibuprofen [Motrin] 400 mg PO Q6H PRN tablet 10/19/20 [Rx] lisinopriL [Prinivil] 10 mg PO DAILY #60 tablet 10/19/20 [Rx] Fluticasone/Umeclidin/Vilanter [Trelegy Ellipta 200-62.5-25] 1 inh INH DAILY 09/20/21 [History] cloNIDine [Catapres] 0.5 tab PO DAILY PRN 09/20/21 [History] Past Medical History HEENT History: Reports: Impaired Vision Cardiovascular History: Reports: High Cholesterol, Hypertension Respiratory History: Reports: Asthma, COPD, Sleep Apnea Other Respiratory History: Uses C-Pap for sleep apnea Gastrointestinal History: Reports: GERD Genitourinary History: Reports: UTI, Recurrent [employer] History: Reports: Musculoskeletal History: Reports: Arthritis Other Musculoskeletal History: L rotator cuff torn, "broke cap on top of humerus on R side" Endocrine/Metabolic History: Reports: Hypothyroidism Oncologic (Cancer) History: Reports: Squamous Cell Carcinoma Dermatologic History: Reports: Other (See Below) 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 Denies: Weakness Respiratory: Reports: No Symptoms Cardiovascular: Reports: Edema (trace to left foot only) GI/Abdominal: Reports: No Symptoms Musculoskeletal: Reports: No Symptoms Skin: Reports: No Symptoms Psychiatric: Reports: Anxiety ED EXAM, GENERAL - Physical Exam Exam: See Below Exam Limited By: No Limitations General Appearance: Alert, WD/WN, Anxious Throat/Mouth: Normal Inspection, Normal Oropharynx Head: Atraumatic, Normocephalic Neck: Supple, Non-Tender Cardiovascular: Normal Peripheral Pulses, Regular Rate, Rhythm GI/Abdominal: Normal Bowel Sounds, Soft, Non-Tender Extremities: Normal Inspection, Pedal Edema (trace to the left foot.) Neurological: Alert, Oriented Skin Exam: Warm, Dry, Intact Course - Vital Signs Last Recorded V/S: Last Vital Signs Temp 98.9 F 09/20/21 06:01 Pulse 58 L 09/20/21 06:03 Resp 18 09/20/21 06:01 BP 207/89 H 09/20/21 06:07 Pulse Ox 95 09/20/21 06:01 - Orders/Labs/Meds Orders: Active Orders 24 hr Category Date Time Status Chest 2V [CR] Stat Exams 09/20/21 06:04 Taken Labs: Laboratory Tests 09/20/21 09/20/21 09/20/21 Range/Units 06:04 06:12 06:12 WBC 6.3 (4.0-11.0) 10^3/uL RBC 4.16 (4.00-5.50) x10^6/uL Hgb 12.7 (12.0-16.0) g/dL Hct 38.6 (37.0-47.0) % MCV 92.8 (83.0-97.0) fL MCH 30.5 (27.0-32.0) pg MCHC 32.9 (32.0-36.0) g/dL RDW Coeff of Tobin 13.0 (11.0-15.0) % Plt Count 240 (150-400) 10^3/uL Immature Gran % (Auto) 0.2 (0.0-4.9) % Neut % (Auto) 64.8 (41-71) % Lymph % (Auto) 20.8 L (24-44) % Peach % (Auto) 11.1 H (0-10) % Eos % (Auto) 2.5 (0-6) % Baso % (Auto) 0.6 (0-1) % Neut # (Auto) 4.09 (1.80-8.00) x10^3/uL Lymph # (Auto) 1.31 (0.60-5.00) 10^3/uL Peach # (Auto) 0.70 (0.00-1.50) 10^3/uL Eos # (Auto) 0.16 (0.00-1.50) 10^3/uL Baso # (Auto) 0.04 (0.00-0.50) 10^3/uL Immature Gran # (Auto) 0.01 (0.00-0.49) 10^3/uL PT 10.7 (9.7-12.3) SEC INR 0.98 (0.92-1.18) Sodium 143 (136-145) mEq/L Potassium 3.6 (3.5-5.0) mEq/L Chloride 103 (98-106) mEq/L Carbon Dioxide 29 (21-32) mmol/L BUN 10 D (7-18) mg/dL Creatinine 0.9 (0.6-1.0) mg/dL Est Cr Clr Drug Dosing 35.49 mL/min Estimated GFR (MDRD) 59 L (>=60) mL/min Glucose 99 (75-99) mg/dL Calcium 8.8 (8.4-10.1) mg/dL Lactate Dehydrogenase 200 H (100-190) U/L Creatine Kinase 100 (21-215) U/L Troponin I High Sens 18.3 (<=51) pg/mL NT-Pro-B Natriuret Pep 242 (0-1000) pg/mL Meds: Medications Discontinued Medications Generic Name Dose Route Start Last Admin Trade Name Freq PRN Reason Stop Dose Admin Clonidine HCl 0.1 mg 09/20/21 06:03 09/20/21 06:07 Clonidine 0.1 Mg Tab PO 09/20/21 06:04 0.1 mg NOW STA Administration Lisinopril 10 mg 09/20/21 07:00 Lisinopril 10 Mg Tab PO 09/20/21 07:01 ONETIME ONE - Re-Assessments/Exams Free Text/Narrative Re-Assessment/Exam: 09/20/21 07:40 BP is coming down and she feels well at this time. Departure - Departure Time of Disposition: 07:41 Disposition: Home, Self-Care 01 Condition: Good Clinical Impression: Hypertension Instructions: Hypertension, Adult, [id number] Referrals: Annalee Hanson PA [Primary Care Provider] - Forms: ED Department Discharge Additional Instructions: Do not take your BP more than daily unless you do not feel well. Do not take extra clonidine unless BP over 160/95. Increase lisinopril to 10 mg daily Make appt in the clinic next week to have BP rechecked and to have meds adjusted if needed. return to the clinic earlier if any new concerns noted. Sepsis Event Note (ED) - Focused Exam Vital Signs: Vital Signs Temp Pulse Resp BP BP Pulse Ox 09/20/21 06:07 207/89 H 09/20/21 06:03 58 L 207/89 H 09/20/21 06:01 98.9 F 60 18 248/119 H 95 - Problem List & Annotations (1) Hypertension SNOMED Code(s): 37981383 Code(s): I10 - ESSENTIAL (PRIMARY) HYPERTENSION Status: Chronic Priority: High Current Visit: No Qualifiers: Hypertension type: primary hypertension Qualified Code(s): I10 - Essential (primary) hypertension - Problem List Review Problem List Initiated/Reviewed/Updated: Yes - My Orders Last 24 Hours: My Active Orders 09/20/21 06:04 Chest 2V [CR] Stat - Assessment/Plan Last 24 Hours: My Active Orders 09/20/21 06:04 Chest 2V [CR] Stat
[2021-09-20 07:21] VITALS: BP 191/90
== END 2021-09-20 07:50 | disposition home or self-care (01) ==
LOC: CC.ED 05:58
DX: I10 Essential (primary) hypertension (principal); J44.9 Chronic obstructive pulmonary disease, unspecified; K21.9 Gastro-esophageal reflux disease without esophagitis; M19.90 Unspecified osteoarthritis, unspecified site; E03.9 Hypothyroidism, unspecified; Z88.8 Allergy status to other drugs, medicaments and biological substances; Z88.5 Allergy status to narcotic agent; Z88.2 Allergy status to sulfonamides; Z79.899 Other long term (current) drug therapy
CPT/HCPCS: 36415; 71046; 80048; 82550; 83615; 83880; 84484; 85025; 85610; 93005; 99284-25; A9270-GY